=== PATIENT | male | born 1955 | race Caucasian/White ===

== ENCOUNTER 2022-10-16 21:26 | Emergency (ER) | payer OTHER, MEDICARE, BC ==
[~2022-10-16] VITALS: Ht 182.9 cm; Wt 111.8 kg
--- NOTE | 2022-10-16 23:19 | NUR ---
gave him an OJ to drink. His son is with him. Pt awake and alert.
[2022-10-17 01:24] VITALS: BP 147/78
== END 2022-10-17 01:25 | disposition home or self-care (01) ==
LOC: ER 21:27
DX: E11.649 Type 2 diabetes mellitus with hypoglycemia without coma (principal); E78.00 Pure hypercholesterolemia, unspecified; W19.XXXA Unspecified fall, initial encounter; Y93.89 Activity, other specified; Y92.89 Other specified places as the place of occurrence of the external cause; Y99.8 Other external cause status
CPT/HCPCS: 82948; 99284

== ENCOUNTER 2022-10-20 04:11 | Inpatient (IN) | payer OTHER, MEDICARE, BC ==
[~2022-10-20] VITALS: Ht 182.9 cm; Wt 108.0 kg
[2022-10-20 04:54] LABS: BASOPHILS % (AUTO) 0.5 % (0-1); EOSINOPHILS # (AUTO) 0.1 X10'3 (0-0.9); EOSINOPHILS % (AUTO) 2.3 % (0-6); HEMATOCRIT 37.9 % (42.0-52.0); HEMOGLOBIN 12.4 g/dl (14.0-17.9); LYMPHOCYTES # (AUTO) 0.8 X10'3 (1.1-4.8); LYMPHOCYTES % (AUTO) 12.4 % (21-51); MEAN CORPUSCULAR HEMOGLOBIN 30.1 PG (27.0-31.0); MEAN CORPUSCULAR HGB CONC 32.7 g/dL (33.0-36.5); MEAN CORPUSCULAR VOLUME 92.1 FL (78-98); MEAN PLATELET VOLUME 8.8 FL (7.4-10.4); MONOCYTES # (AUTO) 0.6 X10'3 (0-0.9); MONOCYTES % (AUTO) 9.5 % (2-12); NEUTROPHILS # (AUTO) 4.7 X10'3 (1.8-7.7); NEUTROPHILS % (AUTO) 75.3 % (42-75); PLATELET COUNT 139 X10'3 (140-440); RED BLOOD COUNT 4.12 X10'6 (4.70-6.10); RED CELL DISTRIBUTION WIDTH 13.9 % (11.5-14.5); WHITE BLOOD COUNT 6.3 X10'3 (4.5-11.0)
[2022-10-20 04:55] LABS: COLOR,URINE YELLOW (Yellow); GLUCOSE, URINE 100 mg/dl (Neg); KETONES,URINE NEGATIVE (Neg); LEUKOCYTE ESTERASE ,URINE NEGATIVE (Neg); NITRITES, URINE NEGATIVE (Neg); OCCULT BLOOD,URINE NEGATIVE (Neg); PH,URINE 5.5 (4.8-8.0); PROTEIN,URINE TRACE mg/dl (Neg); UROBILINOGEN,URINE 0.2 E.U/dL (0.2-1.0)
[2022-10-20 05:03] LABS: CLARITY,URINE SLIGHTLY CLOUDY (Clear); UA COLLECTION TYPE CLN CATCH MIDSTREAM
[2022-10-20 05:06] LABS: ALANINE AMINOTRANSFERASE 36 U/L (12-78); ALBUMIN 3.3 G/DL (3.4-5.0); ALKALINE PHOSPHATASE 89 IU/L (46-116); ANION GAP 11 (8-16); ASPARTATE AMINO TRANSFERASE 25 U/L (10-37); BILIRUBIN,TOTAL 0.2 MG/DL (0.1-1.0); BLOOD UREA NITROGEN 41 MG/DL (7-18); BUN/CREATININE RATIO 18.8 (10.0-20.0); CALCIUM 8.3 MG/DL (8.5-10.1); CHLORIDE 111 MMOL/L (99-107); CREATININE 2.18 MG/DL (0.60-1.10); GLUCOSE 128 MG/DL (70-104); POTASSIUM 4.9 MMOL/L (3.5-5.1); SODIUM 141 MMOL/L (135-145); TOTAL CARBON DIOXIDE 19.4 MMOL/L (24-32); TOTAL PROTEIN 6.7 G/DL (6.4-8.2); eGFR 30 ML/MIN
[2022-10-20 05:14] LABS: BACTERIA,URINE NONE SEEN /HPF (Neg); MUCUS STRANDS FEW /LPF (Neg); RBC,URINE 0-2 /HPF (0-2); SQUAMOUS EPITHELIAL CELL,UR FEW /LPF (FEW); WBC,URINE 0-4 /HPF (0-4)
[2022-10-20] MEDS ORDERED: HYDROcodone/acetaminophen 10/325mg tab PO PRN (05:30)
[2022-10-20] MEDS ORDERED: ondansetron 4mg rapidly disintigrating tab PO PRN (05:30)
[2022-10-20] MEDS ORDERED: ondansetron/PF 4mg/2ml inj IV PRN (05:30)
[2022-10-20] MEDS ORDERED: HYDROcodone/acetaminophen 5mg/325mg tablet PO PRN (05:30)
[2022-10-20] MEDS ORDERED: magnesium hydroxide 30ml (MOM) UD suspension PO PRN (05:30)
[2022-10-20] MEDS ORDERED: bisacodyl 10mg suppository rectal RC PRN (05:30)
[2022-10-20] MEDS ORDERED: mag hydrox/Alum hydrox/simeth 30ml oral suspension PO PRN (05:30)
[2022-10-20] MEDS ORDERED: acetaminophen 325mg tablet PO PRN ×2 (05:30)
[2022-10-20] MEDS ORDERED: diphenhydrAMINE 25mg capsule PO PRN (05:30)
[2022-10-20] MEDS ORDERED: diphenhydrAMINE 50 mg/ml inj IV PRN (05:30)
[2022-10-20] MEDS ORDERED: morphine 2 MG/ML inj. syringe IV PRN ×2 (05:30)
[2022-10-20] MEDS ORDERED: acetaminophen 650mg rectal suppository RC PRN (05:30)
[2022-10-20] MEDS ORDERED: dextrose 50%-water 50ml dispensing syringe IV PRN ×2 (05:35)
[2022-10-20] MEDS ORDERED: insulin Lispro (HumaLOG) vial - multi-dose SQ SCH (05:35)
[2022-10-20] MEDS ORDERED: glucagon, human recombinant 1mg kit SUBCUT PRN (05:35)
[2022-10-20] MEDS ORDERED: DEXTROSE 15 GM of carb/4 tabs (each vial/BOTTLE has 4 tablets) PO PRN ×2 (05:35)
[2022-10-20] MEDS ORDERED: MESSAGE TO PHARMACY PO ONE (05:35)
[2022-10-20] MEDS: dextrose 5%-1/2 normal saline 1,000 ML IV SCH ×2 (05:56→15:30)
[2022-10-20 07:31] LABS: CREATINE KINASE 157 U/L (39-308); LIPASE 64 U/L (73-393); MAGNESIUM 1.9 MG/DL (1.5-2.4); PHOSPHORUS 4.7 MG/DL (2.3-4.5)
[2022-10-20 07:45] LABS: HEMOGLOBIN A1C 8.4 % (4.5-6.2)
[2022-10-20] MEDS ORDERED: heparin, porcine 5000 units/ml vial SQ SCH (08:00)
[2022-10-20] MEDS: docusate sod 100mg capsule PO SCH ×2 (08:00→21:25)
[2022-10-20 09:04] LABS: APTT 28 SECONDS (22-32)
[2022-10-20] MEDS ORDERED: LISI5TAB22 PO (09:05)
[2022-10-20] MEDS ORDERED: RIVA10TA PO (09:05)
[2022-10-20] MEDS ORDERED: GABA-530 PO (09:41)
[2022-10-20] MEDS ORDERED: ALLO100T15 PO (09:41)
[2022-10-20] MEDS ORDERED: VITA-268 PO (09:41)
[2022-10-20] MEDS ORDERED: ATOR20TA PO (09:41)
[2022-10-20] MEDS ORDERED: CHOL125C6 (09:47)
[2022-10-20] MEDS ORDERED: CHOL200013 PO (12:50)
[2022-10-20] MEDS ORDERED: INSU100V56 SQ (12:53)
[2022-10-20] MEDS ORDERED: INSU100V46 SQ (12:53)
--- NOTE | 2022-10-20 17:24 | NUR ---
PATIENT IS EATING WELL. BLOOD GLUCOSE 240. HYPERGLYCEMIA PROTOCOL TO START WITH DINNER. PAGE SENT TO DR. MEADE TO CLARIFY THE IV FLUIDS OF D5.45 NS. PAGER ID: [phone] MESSAGE: ER BED #8 KARMEN. PATIENT'S BLOOD GLUCOSE IS 240 AND WE WILL BE STARTING HIM ON THE HYPERGLYCEMIA PROTOCOL WITH DINNER. DO YOU WANT TO CONTINUE THE D5.45 NS IV FLUIDS? THANKS, CORINNA EXT. [phone]
[2022-10-20 18:00] VITALS: BP 110/71
--- NOTE | 2022-10-20 19:00 | NUR ---
Patient in room ORTHO 4015. I have received report from Zabrina STILES and had the opportunity to ask questions and assume patient care.
--- NOTE | 2022-10-20 20:00 | NUR ---
Provider was paged to clarify the D5 1/2 ns that was ordered as the patients blood sugar was 240 in the er. Provider advised to d/c d5
[2022-10-20] MEDS ORDERED: atorvastatin 20mg tablet PO SCH (21:00)
[2022-10-20] MEDS ORDERED: temazepam 15mg capsule PO PRN (21:00)
[2022-10-20] MEDS ORDERED: rivaroxaban 10mg tablet PO SCH (21:00)
[2022-10-20 22:00] VITALS: BP 125/76
[2022-10-21 06:23] LABS: BASOPHILS % (AUTO) 0.8 % (0-1); EOSINOPHILS # (AUTO) 0.4 X10'3 (0-0.9); EOSINOPHILS % (AUTO) 7.1 % (0-6); HEMATOCRIT 35.7 % (42.0-52.0); HEMOGLOBIN 11.8 g/dl (14.0-17.9); LYMPHOCYTES # (AUTO) 1.4 X10'3 (1.1-4.8); LYMPHOCYTES % (AUTO) 26.5 % (21-51); MEAN CORPUSCULAR HEMOGLOBIN 29.9 PG (27.0-31.0); MEAN CORPUSCULAR HGB CONC 32.9 g/dL (33.0-36.5); MEAN CORPUSCULAR VOLUME 90.9 FL (78-98); MEAN PLATELET VOLUME 8.9 FL (7.4-10.4); MONOCYTES # (AUTO) 0.5 X10'3 (0-0.9); MONOCYTES % (AUTO) 8.8 % (2-12); NEUTROPHILS # (AUTO) 3.1 X10'3 (1.8-7.7); NEUTROPHILS % (AUTO) 56.8 % (42-75); PLATELET COUNT 157 X10'3 (140-440); RED BLOOD COUNT 3.93 X10'6 (4.70-6.10); RED CELL DISTRIBUTION WIDTH 14.1 % (11.5-14.5); WHITE BLOOD COUNT 5.5 X10'3 (4.5-11.0)
--- NOTE | 2022-10-21 06:30 | NUR ---
Patient in room ORTHO 4015. I have received report from MAXINE and had the opportunity to ask questions and assume patient care.
[2022-10-21 06:41] VITALS: BP 124/50
[2022-10-21 06:47] LABS: ALANINE AMINOTRANSFERASE 30 U/L (12-78); ALBUMIN/GLOBULIN RATIO 0.9 (1.1-1.5); ALKALINE PHOSPHATASE 80 IU/L (46-116); ANION GAP 7 (8-16); ASPARTATE AMINO TRANSFERASE 18 U/L (10-37); BILIRUBIN,TOTAL 0.4 MG/DL (0.1-1.0); BLOOD UREA NITROGEN 38 MG/DL (7-18); BUN/CREATININE RATIO 20.3 (10.0-20.0); CALCIUM 8.6 MG/DL (8.5-10.1); CHLORIDE 110 MMOL/L (99-107); CHOL/HDL RATIO 3.3 (0.00-4.99); CHOLESTEROL 128 MG/DL (0-200); CREATININE 1.87 MG/DL (0.60-1.10); GLUCOSE 152 MG/DL (70-104); HDL CHOLESTEROL 39 MG/DL (35-60); POTASSIUM 5.4 MMOL/L (3.5-5.1); SODIUM 139 MMOL/L (135-145); TOTAL CARBON DIOXIDE 22.3 MMOL/L (24-32); TOTAL PROTEIN 6.4 G/DL (6.4-8.2); TRIGLYCERIDES 197 MG/DL (20-135); eGFR 36 ML/MIN
--- NOTE | 2022-10-21 06:47 | NUR ---
Patient in room ORTHO 4015. I have received report from Trish STILES and had the opportunity to ask questions and assume patient care.
[2022-10-21 07:00] LABS: LDL CHOLESTEROL 57 MG/DL (50-100)
[2022-10-21] MEDS ORDERED: vitamin B comp w/Vit. C tab 1 TAB TABLET PO SCH (08:00)
[2022-10-21] MEDS ORDERED: lisinopril 5mg tablet PO SCH (08:00)
[2022-10-21] MEDS ORDERED: cholecalciferol (vitamin D3) 1,000 unit (25mcg) tablet PO SCH (08:00)
[2022-10-21] MEDS: docusate sod 100mg capsule PO SCH (08:40)
--- NOTE | 2022-10-21 09:39 | NUR ---
PATIENT HAS MET PROTOCOL FOR YOU DM2 TREATMENT DURING PREVIOUS SHIFT, BUT PATIENT HAS NOT RECEIVED INSULIN DURING THIS VISIT. PATIENT WAS IV MAINTENANCE FLUIDS WITH DEXTROSE IN IT THAT HAS SINCE BEEN DC'D. WILL CONTINUE MONITORING.
[2022-10-21 09:53] VITALS: BP 144/70
[2022-10-21] MEDS ORDERED: PREG50CA64 PO (10:17)
--- NOTE | 2022-10-21 13:16 | NUR ---
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 Pt seen at bedside provided with written and verbal DM education. Pt states he is familiar with the rule of 15s for tx of hypoglycemia and states he likes to use orange juice, peaches, or applesauce to increase blood sugar. Pt reports living with his son and SO who assist him when having episodes of hypoglycemia. Per pt his last A1c was 8.2% on October 17 at the [facility] down from 8.6%. Pt states he believes his hypoglycemia is r/t new rx for Gabapentin stating he has not had issues with hypoglycemia prior to this new rx. Pt reports obtaining a new glucometer last week and appears to check his blood sugars regularly. Pt inquired about potassium content of foods reporting only having one kidney with elevated K on admit. Pt states he got a list of potassium content of foods from his physician. All of patient's questions were answered at this time. RD contact information provided and pt encouraged to reach out if needed. Will remain available. Addendum: 10/21/22 at [address] Amended: Links added.
--- NOTE | 2022-10-21 17:59 | NUR ---
Patient discharged home, patient was educated on new medication at the time of discharge. Patient was picked up by private vehicle. Patient left with all belongings and IV was taken out at the time of discharge.
== END 2022-10-21 15:43 | disposition home or self-care (01) | DRG 683 ==
LOC: ER 04:12 → ED HOLD 05:34 → EDBEDREQTM 17:06 → EDBEDREQDT 17:06 → ORTHO 4S 18:56
PROVIDERS: ADMIT Family Medicine; ATTEND Family Medicine
DX: N17.0 Acute kidney failure with tubular necrosis (principal); E87.20 Acidosis, unspecified; E11.649 Type 2 diabetes mellitus with hypoglycemia without coma; E11.22 Type 2 diabetes mellitus with diabetic chronic kidney disease; I12.9 Hypertensive chronic kidney disease with stage 1 through stage 4 chronic kidney disease, or unspecified chronic kidney disease; E88.09 Other disorders of plasma-protein metabolism, not elsewhere classified; M54.9 Dorsalgia, unspecified; E87.5 Hyperkalemia; E11.42 Type 2 diabetes mellitus with diabetic polyneuropathy; N18.9 Chronic kidney disease, unspecified; D64.9 Anemia, unspecified; E78.00 Pure hypercholesterolemia, unspecified; G89.4 Chronic pain syndrome; Z79.01 Long term (current) use of anticoagulants; Z79.4 Long term (current) use of insulin; Z85.528 Personal history of other malignant neoplasm of kidney; Z86.718 Personal history of other venous thrombosis and embolism; Z90.5 Acquired absence of kidney; Z79.899 Other long term (current) drug therapy
CPT/HCPCS: 36415; 71045; 80053; 80061; 81001; 82550; 82948; 83036; 83605; 83690; 83735; 83880; 84100; 84443; 84484; 85025; 85610; 85730; 87040; 87081; 93005; 99285; G0378

== ENCOUNTER 2024-04-25 04:51 | Emergency (ER) | payer OTHER, MEDICARE, BC ==
[~2024-04-25] VITALS: Ht 182.9 cm; Wt 97.7 kg
[~2024-04-25 04:51] MED LIST: ATOR20TA PO; CHOL200013 PO; INSU100V46 SQ; INSU100V56 SQ; LISI5TAB22 PO; RIVA10TA PO; SEMA1PEN3 SUBCUT; VITA-268 PO
[2024-04-25 07:44] LABS: BASOPHILS % (AUTO) 0.6 % (0-1); EOSINOPHILS # (AUTO) 0.1 X10'3 (0-0.9); EOSINOPHILS % (AUTO) 3.3 % (0-6); HEMATOCRIT 36.5 % (42.0-52.0); HEMOGLOBIN 12.5 g/dl (14.0-17.9); LYMPHOCYTES # (AUTO) 0.8 X10'3 (1.1-4.8); LYMPHOCYTES % (AUTO) 19.6 % (21-51); MEAN CORPUSCULAR HEMOGLOBIN 30.7 PG (27.0-31.0); MEAN CORPUSCULAR HGB CONC 34.2 g/dL (33.0-36.5); MEAN CORPUSCULAR VOLUME 89.6 FL (78-98); MONOCYTES # (AUTO) 0.4 X10'3 (0-0.9); MONOCYTES % (AUTO) 10.2 % (2-12); NEUTROPHILS # (AUTO) 2.8 X10'3 (1.8-7.7); NEUTROPHILS % (AUTO) 66.3 % (42-75); PLATELET COUNT 161 X10'3 (140-440); RED BLOOD COUNT 4.08 X10'6 (4.70-6.10); RED CELL DISTRIBUTION WIDTH 14.2 % (11.5-14.5); WHITE BLOOD COUNT 4.2 X10'3 (4.5-11.0)
[2024-04-25 08:03] LABS: ALBUMIN 2.8 G/DL (3.4-5.0); ANION GAP 9 (8-16); BLOOD UREA NITROGEN 30 MG/DL (7-18); BUN/CREATININE RATIO 15.5 (10.0-20.0); CALCIUM 7.5 MG/DL (8.5-10.1); CHLORIDE 112 MMOL/L (99-107); CREATININE 1.93 MG/DL (0.60-1.10); GLUCOSE 125 MG/DL (70-104); MAGNESIUM 1.8 MG/DL (1.5-2.4); SODIUM 144 MMOL/L (135-145); TOTAL CARBON DIOXIDE 23.1 MMOL/L (24-32); eCRCL 39 ML/MIN; eGFR 34 ML/MIN
[2024-04-25 08:18] LABS: BILIRUBIN,URINE NEGATIVE (Neg); CLARITY,URINE CLEAR (Clear); COLOR,URINE YELLOW (Yellow); GLUCOSE, URINE 250 mg/dl (Neg); KETONES,URINE NEGATIVE (Neg); LEUKOCYTE ESTERASE ,URINE NEGATIVE (Neg); NITRITES, URINE NEGATIVE (Neg); OCCULT BLOOD,URINE NEGATIVE (Neg); PROTEIN,URINE 100 mg/dl (Neg); UROBILINOGEN,URINE 0.2 E.U/dL (0.2-1.0)
[2024-04-25 08:31] LABS: UA COLLECTION TYPE CLN CATCH MIDSTREAM
[2024-04-25 08:32] LABS: BACTERIA,URINE NONE SEEN /HPF (Neg); MUCUS STRANDS FEW /LPF (Neg); RBC,URINE NONE SEEN /HPF (0-2); SQUAMOUS EPITHELIAL CELL,UR FEW /LPF (FEW); WBC,URINE NONE SEEN /HPF (0-4)
[2024-04-25 09:53] VITALS: BP 160/88; PULSE 76; RESP 18; TEMP 97.6; O2SAT 96
== END 2024-04-25 09:57 | disposition home or self-care (01) ==
LOC: ER 04:52
DX: E11.649 Type 2 diabetes mellitus with hypoglycemia without coma (principal); E78.00 Pure hypercholesterolemia, unspecified; G89.29 Other chronic pain; R56.9 Unspecified convulsions; Z91.018 Allergy to other foods; Z79.899 Other long term (current) drug therapy; Z79.4 Long term (current) use of insulin; Z86.718 Personal history of other venous thrombosis and embolism; Z88.8 Allergy status to other drugs, medicaments and biological substances
CPT/HCPCS: 36415; 70450; 71045; 80048; 81001; 82948; 83735; 84145; 84484; 85025; 93005; 99285

== ENCOUNTER 2024-11-19 17:54 | Inpatient (IN) | payer OTHER, MEDICARE, BC ==
[~2024-11-19] VITALS: Ht 182.9 cm; Wt 98.2 kg
--- NOTE | 2024-11-19 18:12 | ELECTROCARDIOGRAPH REPORT ---
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
--- NOTE | 2024-11-19 18:41 | RADIOLOGY REPORT ---
CHEST RADIOGRAPH Indication: CP Technique: Single frontal view of the chest was obtained Comparison: None FINDINGS: The cardiac silhouette is enlarged. The lungs demonstrate no pulmonary airspace consolidation. The pu lmonary vasculature is unremarkable. There is no pleural effusion.. There is no pneumothorax. IMPRESSION: No pulmonary airspace consolidation. Cardiomegaly.
[2024-11-19 19:25] LABS: MEAN PLATELET VOLUME 8.2 FL (7.4-10.4); RED CELL DISTRIBUTION WIDTH 13.6 % (11.5-14.5)
[2024-11-19 19:47] LABS: CREATININE 1.91 MG/DL (0.60-1.10); PRO BRAIN NATRIURETIC PEPTIDE 171 PG/ML (0-125); TOTAL CARBON DIOXIDE 21.4 MMOL/L (24-32); eCRCL 39 ML/MIN; eGFR 35 ML/MIN
--- NOTE | 2024-11-19 20:06 | Physician Documentation ---
History of Present Illness ~ Chief Complaint: Shortness of Breath Stated Complaint: SOB Time Seen by MD: 19:53 Primary Medical Doctor: KENNEDI CIFUENTES Mode of Arrival: Ambulatory HPI Patient presents to the emergency room with chief complaint of shortness of breath. He states he started feeling fatigued with the chills this afternoon and took a nap and when he woke up an hour later he went to walk to go make some lasagna and he felt short of breath to the point where he needed to sit down and ambulance was called. Patient does have history of DVT and reports compliance with the Xarelto last dose last night. He reports a family history of blood clots. He does endorse some chest pain when the ambulance was getting him to be transferred to the [facility] but no current chest pain. No prior instances. He reports no increased swelling or pain in either lower extremity. Patient only has one kidney. Medication Reconciliation Allergies: Coded Allergies: blueberry (Unverified Allergy, Unknown, 11/19/24) gabapentin (Verified Allergy, Unknown, 11/19/24) Scheduled Atorvastatin Calcium* (Lipitor*), 1 TABLET PO HS, (Reported) Cholecalciferol (Vitamin D3) (D3-2000), 100 MCG PO DAILY, (Reported) Insulin Aspart (Insulin Aspart), 10 UNIT SQ TID, (Reported) Insulin Glargine,Hum.rec.anlog (Insulin Glargine), 34 UNIT SQ HS, (Reported) Lisinopril (Lisinopril), 1 TAB PO DAILY, (Reported) Rivaroxaban (Xarelto), 1 TAB PO QPM, (Reported) Semaglutide (Ozempic), 0.5 MG SUBCUT Q7D, (Reported) Vitamin B Complex (B Complex), 1 TAB PO DAILY, (Reported) Past Medical History Past Medical History: High Cholesterol, *RENAL/*, Diabetes, Chronic Back Pain, Deep Vein Thrombosis, *CANCER* Past Surgical History: cancer surgery Alcohol Use: None Drug Use: none Review of Systems ROS All review of systems negative except as per HPI Physical Exam Vital Signs: Temperature: 97.8, Source: Oral, Heart Rate: 111, Respiratory Rate: 16, BP: 121/71, Pulse Oximetry: 92, Weight: 98.180 Oxygen Flow Rate: 0 Physical Exam General: Patient is awake, alert, oriented x4 in no acute distress Head: Normocephalic and atraumatic. Eyes: Conjunctival normal. EOMI. PERRL. ENT: Mucous membranes moist. Neck: Supple, trachea is midline. Chest: Clear to auscultation bilaterally without rales, rhonchi, or wheezes. There is no accessory muscle use or retractions. Cardiac: Tachycardic and regular without murmurs, gallops, or rubs. Abd: Soft, nondistended, nontender, with normoactive bowel sounds. No guarding, rebound, or rigidity. Extremities: Normal strength. Normal range of motion. No deformities or edema. No calf tenderness to palpation Progress Results/Orders Results/Orders Orders - LUIS BRAMBILA MD Chest,Single View (11/19/24 18:11) Monitor (11/19/24 18:11) Saline Lock (11/19/24 18:11) Oxygen (11/19/24 18:11) Electrocardiogram (11/19/24 19:49) Heparin 25,000 Unit/250ml Bag (Heparin 2 (11/19/24 20:20) Heparin 10,000 Unit/Ml 1ml (Heparin 10,0 (11/19/24 20:20) Cbc/Diff (11/20/24 03:00) Cbc/Diff (11/21/24 03:00) Cbc/Diff (11/22/24 03:00) Cbc/Diff (11/23/24 03:00) Cbc/Diff (11/24/24 03:00) Page Hospitalist (11/19/24 21:52) Fill Out Med Reconciliation (11/19/24 21:52) Completed Orders - LUIS BRAMBILA MD Chest,Single View (11/19/24 18:11) Cbc/Diff (11/19/24 18:11) BMP (11/19/24 18:11) PBNP (11/19/24 18:11) Electrocardiogram (11/19/24 18:11) Hs Troponin I W Calculations (11/19/24 18:11) Hs Troponin I W Calculations (11/19/24 20:11) Hs Troponin I W Calculations (11/19/24 21:11) D-Dimer (11/19/24 20:17) Pt Inr (11/19/24 20:17) PTT (11/19/24 20:17) Cbc/Diff (11/19/24 20:17) Heparin 10,000 Unit/Ml 1ml (Heparin 10,0 (11/19/24 20:20) Message To Nursing (11/19/24 20:40) Medications Received in ER Medications (Trade) Dose Ordered Sig/Michele Route PRN Reason Start Time Stop Time Status Last Admin Dose Admin (heparin 10,000 unit/ml 1ml inj) 7,900 units ONCE ONCE IV 11/19/24 20:20 11/19/24 20:33 DC 11/19/24 20:50 7,900 UNITS Heparin Sodium/ Dextrose 250 ml @ 18 mls/hr [id number] PRN IV TO MAINTAIN PTT WITHIN RANGE 11/19/24 20:20 11/19/24 20:46 18 MLS/HR Vital Signs 11/19/24 11/19/24 11/19/24 18:05 18:28 18:33 Temp 98.4 97.8 Pulse 112 111 Resp 22 16 16 B/P (MAP) 121/71 121/71 (88) Pulse Ox 92 92 O2 Flow Rate 2.0 0 Laboratory Tests Test 11/19/24 18:54 11/19/24 19:54 11/19/24 20:38 11/19/24 21:06 White Blood Count 5.3 6.2 Red Blood Count 4.66 L 4.82 Hemoglobin 14.1 14.6 Hematocrit 40.9 L 42.2 Mean Corpuscular Volume 87.8 87.5 Mean Corpuscular Hemoglobin 30.2 30.2 Mean Corpuscular Hemoglobin Concent 34.4 34.5 Red Cell Distribution Width 13.6 13.7 Platelet Count 146 158 Mean Platelet Volume 8.2 8.5 Neutrophils (%) (Auto) 67.3 73.6 Lymphocytes (%) (Auto) 20.1 L 16.3 L Monocytes (%) (Auto) 8.0 6.9 Eosinophils (%) (Auto) 3.9 2.3 Basophils (%) (Auto) 0.7 0.9 Neutrophils # (Auto) 3.5 4.6 Lymphocytes # (Auto) 1.1 1.0 L Monocytes # (Auto) 0.4 0.4 Eosinophils # (Auto) 0.2 0.1 Basophils # (Auto) 0.0 0.1 CBC Comment Sodium Level 133 L Potassium Level 5.9 H Chloride Level 103 Carbon Dioxide Level 21.4 L Anion Gap 9 Blood Urea Nitrogen 33 H Creatinine 1.91 H Estimated GFR/1.73 m2 35 BUN/Creatinine Ratio 17.3 Glucose Level 314 H Calcium Level 8.4 L Troponin I High Sensitivity 2544 *H 2985 *H 3332 *H Pro-B-Type Natriuretic Peptide 171 H Albumin 3.3 L Chemistry Comments Troponin I High Sens Percent Delta 17 11 Troponin I Hi Sens Absolute Change 441 347 Prothrombin Time 10.5 INR International Normalized Ratio 1.0 Activated Partial Thromboplast Time 26 D-Dimer 11.36 H D-Dimer Comment Coagulation Comments EKG/XRAY/CT/US/VASC/MRI EKG : Additional Comment EKG interpreted by myself shows time of 1806, rate 114, sinus tachycardia, normal axis, no ST changes Chest X-Ray : Additional Comments Exam: CHEST,SINGLE VIEW CHEST RADIOGRAPH Indication: CP Technique: Single frontal view of the chest was obtained Comparison: None FINDINGS: The cardiac silhouette is enlarged. The lungs demonstrate no pulmonary airspace consolidation. The pulmonary vasculature is unremarkable. There is no pleural effusion.. There is no pneumothorax. IMPRESSION: No pulmonary airspace consolidation. Cardiomegaly. Medical Decision Making Findings Patient presented to the emergency room with chief complaint of shortness of breath with associated chest pain. Differentials include but are not limited to ACS, CHF, pulmonary embolism, pneumothorax, anxiety therefore emergent labs and imaging indicated. Labs concerning for elevated troponins. History of DVT and that has also concern for possible pulmonary embolisms. As patient's GFR is low and he only has one kidney we opted to perform a D-dimer hoping it would be negative however it is significantly elevated. We would not have the ability to do a nuclear medicine to do a V/Q scan at this time in the emergency room therefore empirical treatment for pulmonary embolism has been initiated. EKGs reassuring for no ST-elevation and the troponins could represent strain from pu lmonary embolism versus acute coronary syndrome. We will admit for further investigation and possible intervention. Consideration of the aortic pathology also considered however he has no back pain he had not feel that his right-sided chest pain represents aortic pathology Departure Admitted to Inpatient Unit: yes, to hospitalist Impression: Primary Impression: NSTEMI (non-ST elevated myocardial infarction) Additional Impression: Suspected pulmonary embolism Condition: Guarded Referrals: NO PRIMARY CARE PROVIDER (PCP) Critical Care Note Total Time (mins): 76 Critical Care Note The very real possibility of a deterioration of this patient's condition required the highest level of my preparedness for sudden, emergent intervention. I provided critical care services, which included medication orders, frequent reevaluations of the patient's condition and response to treatment, ordering and reviewing test results, and discussing the case with various consultants. Excludes time spent performing separately billable procedures. The critical care time associated with the care of the patient was 76 minutes not counting procedures Signature Scribe Signature: No scribe Attestation: The note accurately reflects work and decisions made by me.Luis Brambila MD 11/19/24 22:04 LUIS BRAMBILA MD Nov 19, 2024 20:06
[2024-11-19] MEDS ORDERED: heparin 10,000 units/1 ML INJ IV PRN (20:20)
[2024-11-19] MEDS: heparin 25,000 UNIT/250ml bag 250 ML IV PRN (20:46)
[2024-11-19] MEDS: heparin 10,000 units/1 ML INJ IV ONE (20:50)
[2024-11-19] MEDS: MESSAGE TO NURSING IV ONE (20:50)
[2024-11-19 20:51] LABS: MEAN PLATELET VOLUME 8.5 FL (7.4-10.4); RED CELL DISTRIBUTION WIDTH 13.7 % (11.5-14.5)
[2024-11-19 21:09] LABS: APTT 26 SECONDS (22-32); INR 1.0 INR
[2024-11-19] MEDS ORDERED: DEXTROSE 15 GM of carb/4 tabs (each vial/BOTTLE has 4 tablets) PO PRN ×2 (22:50)
[2024-11-19] MEDS ORDERED: dextrose 50%-water 50ml dispensing syringe IV PRN ×2 (22:50)
[2024-11-19] MEDS ORDERED: glucagon, human recombinant 1mg kit SUBCUT PRN (22:50)
[2024-11-19] MEDS: INSULIN LISPRO 100 UNIT/ML INSULN.PEN MULTI-DOSE SQ SCH (23:13)
[2024-11-19] MEDS: insulin glargine (Lantus) pen - multi-dose SQ SCH (23:16)
[2024-11-19] MEDS: insulin glargine (Lantus) pen - multi-dose SQ ONE (23:17)
[2024-11-19] MEDS: INSULIN LISPRO 100 UNIT/ML INSULN.PEN MULTI-DOSE SQ ONE (23:17)
[2024-11-20] MEDS ORDERED: magnesium sulf-water 4G/100mL 100 ML IV PRN (04:00)
[2024-11-20] MEDS ORDERED: ondansetron/PF 4mg/2ml inj IV PRN (04:00)
[2024-11-20] MEDS ORDERED: magnesium hydroxide 30ml (MOM) UD suspension PO PRN (04:00)
[2024-11-20] MEDS ORDERED: mag hydrox/Alum hydrox/simeth 30ml oral suspension PO PRN (04:00)
[2024-11-20] MEDS ORDERED: magnesium sulf-water 2g/50mL 50 ML IV PRN (04:00)
[2024-11-20] MEDS ORDERED: potassium Cl 20 mEq SR tablet PO PRN ×2 (04:00)
[2024-11-20] MEDS ORDERED: HYDROcodone/acetaminophen 5mg/325mg tablet PO PRN (04:00)
[2024-11-20] MEDS ORDERED: potassium Cl 40MEQ/1/2NS 520ml 520 ML IV PRN (04:00)
[2024-11-20] MEDS ORDERED: magnesium Cl slow-release 64mg tablet PO PRN (04:00)
--- NOTE | 2024-11-20 04:31 | HISTORY AND PHYSICAL-Residence ---
History & Physical Providers to CC Resident Creating Document: AMANDEEP TIWARI, RES CC: BHARATHI CARROLL MD ~ History of Present Illness Primary Medical Doctor: KENNEDI CIFUENTES Reason for Admit\Complaint: Shortness of breaths History of Present Illness Attestation I agree with the residents assessment and plan as below: Plan: VQ scan heparin infusion repeat bmp CCT 60 min using HIPPA compliant A/V technology A 69-year-old male with a past medical history of diabetes, DVT on Xarelto, RCC status post nephrectomy presented to the ED after he started to feel shaky and short of breaths this afternoon after he went back home after checking the mailbox in his community. Patient states that he did not lose consciousness but had shaking in his aware of what was happening. Patient did not have involuntary bowel or bladder movement. Since he was feeling weak he slept for an hour and woke up continued to feel weak and therefore call the 911 while coming downstairs patient is started have chest tightness in the center of the chest with no radiation; difficulty breathing. Patient denies fever chills, palpitations, dizzy, headache. Patient does not have any difficulty in speech or weakness in his lower legs Allergies: Coded Allergies: blueberry (Unverified Allergy, Unknown, 11/19/24) gabapentin (Verified Allergy, Unknown, 11/19/24) Home Medications Home Medications Active Reported Ozempic (Semaglutide) 1 Mg/0.75 Ml (4 Mg/3 Ml) Pen.injctr 0.5 Mg SUBCUT Q7D 30 Days Insulin Glargine (Insulin Glargine,Hum.rec.anlog) 100 Unit/Ml Vial 34 Unit SQ HS Insulin Aspart 100 Unit/Ml Vial 10 Unit SQ TID Pt gets 35 units-35 units-30units each day D3-2000 (Cholecalciferol (Vitamin D3)) 50 Mcg Capsule 100 Mcg PO DAILY B Complex (Vitamin B Complex) 1 Each Tablet 1 Tab PO DAILY Xarelto (Rivaroxaban) 10 Mg Tablet 1 Tab PO QPM take with meals Lisinopril 5 Mg Tablet 0.5 Tab PO DAILY Past Medical History Past Medical History Neuropathy Diabetes mellitus DVT RCC Concussion and seizures Past Surgical History Surgical History Comment Orthopedics induced Nephrectomy Past Social History Social History Comment Patient does not smoke, consume marijuana or illicit drugs or alcohol Lives at home with his 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 Does not use walking aids to move Goes to [facility]es [facility] Alcohol Use: None Drug Use: None ROS ROS All other systems reviewed in full and negative except for the pertinent positives mentioned in the HPI Exam Vitals: Vital Signs Date Time Temp Pulse Resp B/P (MAP) Pulse Ox O2 Delivery O2 Flow Rate FiO2 11/20/24 04:22 88 18 106/81 (89) 96 3.0 11/19/24 18:28 97.8 General: General: Alert, awake, oriented, not in acute distress HEENT: PERRLA, no icterus, pallor, lymphadenopathy, carotid bruit Respiratory system: Bilateral vesicular breath sounds heard, no adventitious breath sounds CVS: S1-S2 heard, no murmurs/rubs/gallop GI: Soft, nontender, no organomegaly, no guarding/rigidity, bowel sounds present Neuro: No motor sensory deficits, coordination reflux entered, patient AAO x3, deviation of the mouth to the right and loss of nasolabial fold on the right Extremities: No edema cyanosis clubbing/deformities Skin: Warm and dry Diagnostic Data Last Recorded Lab Results: 11/19/24203711/19/244 Diagnostic Data: Laboratory Tests Test 11/19/24 20:38 11/20/24 02:48 Prothrombin Time 10.5 SECONDS (9.0-12.0) INR International Normalized Ratio 1.0 INR Activated Partial Thromboplast Time 26 SECONDS (22-32) D-Dimer 11.36 MG/L FEU (0-0.50) H D-Dimer Comment APTT (Heparin Protocol) > 139 SECONDS (45-75) *H Coagulation Comments Advance Care Planning Advanced Care plannin - 30 Minutes (I spent 20 minutes discussing various resuscitative measures and the patient decided to be full code) Additional Plan Assessment: A 69-year-old male with a past medical history of DVT, RCC status post nephrectomy, HTN presented to the ED in view of generalized weakness, fatigue, shortness of breaths. Patient also had elevated D-dimer in the ED. patient is admitted for the evaluation management of pulmonary embolus Plan: Pulmonary embolism History of DVT Elevated D-dimer Wells score: 9 Follow up with V/Q scan and echo to look for right heart strain EKG: Sinus tachycardia Patient is started on IV heparin drip D-dimer: 11.36 Continue to monitor vitals Follow up on protein C, S, homocystine, factor five laden Evaluation for CVA/TIA Follow up with CT head Heparin might have to be held in view of hemorrhagic stroke Elevated troponins Most likely secondary to PE Follow up with repeat trop Prerenal JEREMÍAS probably secondary to renal tubular stasis Elevated BUN and creatinine Continue to monitor BMP Diabetes mellitus type 2, uncontrolled Hyperglycemia A1c in Sep, 2024: 9.1 Lantus 20 units, lispro 10 units ACHS, high-dose sliding scale insulin Hyperkalemia Most likely secondary to hyperglycemia I insulin given Monitor potassium levels Code status: Full code Diet: 75 g carb controlled Anticoagulation: Heparin drip Disposition: Admit to PCU, follow up with echo and V/Q scan Amandeep Tiwari MD Internal Medicine, PGY 2 Date of Service: Nov 19, 2024 Billing Provider: BHARATHI CARROLL MD, SIVA, RES Nov 20, 2024 04:31 BHARATHI CARROLL MD Nov 20, 2024 05:05
[2024-11-20] MEDS: normal saline 1000ml 1,000 ML IV SCH (04:57)
[2024-11-20] MEDS: MESSAGE TO NURSING IV ONE ×4 (04:58→23:45)
--- NOTE | 2024-11-20 05:25 | ELECTROCARDIOGRAPH REPORT ---
[facility] Test Date: 2024-11-19 Test Time: 19:55:04 Pat Name: HUNTER PERAZA Department: EMERGENCY ROOM Room: ED 6 Gender: M Hypo Splasher: RADU : 1955 Requested By: DAVID BRAMBILA Order Number: [id number] Reading MD: Measurements Intervals [place] Rate: 84 P: -76 MA: 157 QRS: 56 QRSD: 115 T: 56 QT: 356 QTc: 421 Interpretive Statements Ectopic atrial rhythm Nonspecific intraventricular conduction delay Low voltage, precordial leads Please click the below link to view image of tracing.
[2024-11-20 05:50] LABS: MEAN PLATELET VOLUME 8.5 FL (7.4-10.4); RED CELL DISTRIBUTION WIDTH 13.6 % (11.5-14.5)
[2024-11-20] MEDS: heparin 25,000 UNIT/250ml bag 250 ML IV PRN (06:28)
[2024-11-20 06:46] LABS: LEUKOCYTE ESTERASE ,URINE NEGATIVE (Neg); NITRITES, URINE NEGATIVE (Neg); OCCULT BLOOD,URINE TRACE-INTACT (Neg)
[2024-11-20] MEDS: INSULIN LISPRO 100 UNIT/ML INSULN.PEN MULTI-DOSE SQ SCH (07:00)
[2024-11-20 07:02] LABS: UA COLLECTION TYPE URINAL
[2024-11-20 07:04] LABS: MUCUS STRANDS NONE SEEN /LPF (Neg); SQUAMOUS EPITHELIAL CELL,UR FEW /LPF (FEW)
[2024-11-20] MEDS: K and/or MAG REPLACEMENT MC SCH (08:00)
[2024-11-20] MEDS: docusate sod 100mg capsule PO SCH (08:00)
[2024-11-20 09:44] VITALS: BP 122/71; PULSE 81; RESP 16; TEMP 98.4; O2SAT 95
--- NOTE | 2024-11-20 09:55 | RADIOLOGY REPORT ---
EXAM: CT CT HEAD INDICATION: cva TECHNIQUE: CT of the head without intravenous contrast. Radiation Dose : 1. Head: CT Dose: CTDI volume is 61 mGy. Dose-length product is 1061 mGy*cm The dose indicators for CT are the volume Computed Tomography (CT) Dose Index (CTDIvol) and the Dose Length Product (DLP), and are measured in units of mGy and mGy-cm, respectively. These indicators are not patient dose, but values generated from the CT scanner acquisition factors. The report includes radiation exposure data for exposures received during this examination. COMPARISON: CT CT HEAD on DOS: 04/25/24, MR MRI HEAD on DOS: 10/11/23, CT CT STROKE ALERT on DOS: 10/09 FINDINGS: There is no evidence of acute intracranial hemorrhage, extra-axial collection, mass effect, midline s hift, herniation or hydrocephalus. The ventricles, sulci and cisterns are age appropriate. The grewal-white differentiation is intact. Patchy periventricular and subcortical white matter hypoattenuation is nonspecific but may be related to small vessel ischemic disease. The visualized paranasal sinuses and mastoid air cells are clear. The surrounding soft tissues and osseous structures are unremarkable. IMPRESSION: 1. No acute intracranial abnormality. Radiation optimization: All CT scans at this facility use at least one of these dose optimization ha hniques: automated exposure control mA and/or kV adjustment per patient size (includes targeted exam s where dose is matched to clinical indication) or iterative reconstruction.
[2024-11-20 11:00] VITALS: BP 111/74; PULSE 97; RESP 20; TEMP 97.3; O2SAT 92
--- NOTE | 2024-11-20 11:05 | RADIOLOGY REPORT ---
CLINICAL INFORMATION: Shortness of breath, elevated D-dimer. History of DVT. TECHNIQUE: 42.4 mCi of aerosolized Tc99m DTPA was used for the ventilation portion of the exam. Post erior ventilation imaging was obtained. 5 mCi of technetium 99m MAA was used for the perfusion portio n of the exam. Imaging was obtained in multiple planes of projection. COMPARISON: Chest radiograph dated 11/19/2024. FINDINGS: Perfusion imaging shows no definite mismatched defects when compared to the ventilation images there is diminished perfusion and ventilation adjacent to the heart, although in some planes the perfusion defect is slightly larger than the ventilation defect. IMPRESSION: Low probability of pulmonary embolism (<20%).
[2024-11-20] MEDS ORDERED: heparin 10,000 units/1 ML INJ IV PRN (13:00)
[2024-11-20] MEDS ORDERED: heparin 25,000 UNIT/250ml bag 250 ML IV PRN ×2 (13:00→14:45)
[2024-11-20] MEDS: normal saline 1000ml 1,000 ML IV ONE (13:56)
[2024-11-20] MEDS: HEPARIN DRIP-CARDIAC**PHARMACIST-TO-DOSE IV ONE (14:42)
[2024-11-20 14:58] LABS: MEAN PLATELET VOLUME 8.9 FL (7.4-10.4); RED CELL DISTRIBUTION WIDTH 14.1 % (11.5-14.5)
[2024-11-20 15:00] VITALS: BP 122/74; PULSE 95; RESP 20; TEMP 97.6; O2SAT 92
[2024-11-20 15:04] LABS: CREATININE 1.94 MG/DL (0.60-1.10); TOTAL CARBON DIOXIDE 19.5 MMOL/L (24-32); eCRCL 38 ML/MIN; eGFR 34 ML/MIN
[2024-11-20 15:23] LABS: APTT 54 SECONDS (22-32); INR 1.1 INR
[2024-11-20 18:00] VITALS: BP 105/70; PULSE 74; RESP 15; TEMP 97.7; O2SAT 97
[2024-11-20 18:32] VITALS: RESP 16; O2SAT 98
--- NOTE | 2024-11-20 19:18 | CONSULTATION REPORT ---
Cardiac Consultation Report Providers to CC ~ Subjective Subjective Cardiology consultation: Abnormal cardiac enzymes shortness of breaths vague chest discomfort history. Emergency room history and evaluation is deferred then hospitalist history and evaluation. Patient is a vague historian. Not very helpful. He states he has never seen a circus roustabout. His general care is at [facility]. There is past medical history of one left nephrectomy for cancer. Insulin-dependent diabetes mellitus recurrent calf deep vein thrombosis no pulmonary embolization in the past by patient history with chronic Xarelto use. 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 Does not drink alcohol does not use nicotine. He had a ventilation perfusion lung scanning which was reported as low probability of pulmonary embolization. Troponin was 0.9. Echocardiography has been performed and reviewed. He has a right ventricular enlargement. Concentric left ventricular hypertrophy with normal wall motion. Tells me he feels out of breath lying in bed. He appears very comfortable. He was here in 09/2023 for either syncope or mechanical fall it was unclear but he had neurologic consultation without any findings. Objective Vitals Vital Signs Date Time Temp Pulse Resp B/P (MAP) Pulse Ox O2 Delivery O2 Flow Rate FiO2 11/20/24 18:32 16 98 Nasal Cannula 2.0 11/20/24 15:00 97.6 95 122/74 (90) Lab Results: 11/20/24 1354 11/20/24 1354 Objective Carotid no bruit chest clear to auscultation percussion heart no murmur S3 gallop no rub abdomen active bowel sounds no bruits pulses plus two upper and lower extremities. Oriented vague nonlinear historian. Coagulation Studies Laboratory Tests Test 11/19/24 20:38 11/20/24 10:57 11/20/24 13:54 D-Dimer 11.36 MG/L FEU (0-0.50) H D-Dimer Comment Prothrombin Time 10.9 SECONDS (9.0-12.0) INR International Normalized Ratio 1.1 INR Activated Partial Thromboplast Time 54 SECONDS (22-32) H APTT (Heparin Protocol) 40 SECONDS (45-75) L Coagulation Comments Problem\Assessment\Plan Additional Plan Impression: Episode of chills fatigue then shortness of breath with vague chest pressure was brought by ambulance to the hospital nonspecific ST-T changes V/Q scan excluded large pulmonary embolization however echocardiography shows right ventricular enlargement hypokinesis left ventricle concentric hypertrophy with normal contractility. I do not actually have an explanation for for his troponin rise. I discussed diagnostic coronary angiography with him and he declines as he does not want to have renal damage he is quite concerned about that. Recommendation: Lexiscan to evaluate for ischemia. If Lexiscan is abnormal then he may be willing to take the risk of diagnostic coronary angiography. Continue on heparin continue to hold Xarelto. If Lexiscan is positive then call circus roustabout who will be available for unassigned patient. BLAS DOAN MD Nov 20, 2024 19:18
[2024-11-20 20:00] VITALS: RESP 15; O2SAT 97
--- NOTE | 2024-11-20 20:14 | PROGRESS NOTE- Residence ---
Progress Note - Resident Providers to CC Resident Creating Document: ARNOLD CASTORENA RES ~ Antibiotic Timeout Antibiotic Ordered?: No Subjective Patient seen and examined bedside, but currently denied chest pain. Transitioned from PE protocol to ACS management. Objective Vital Signs Date Time Temp Pulse Resp B/P (MAP) Pulse Ox O2 Delivery O2 Flow Rate FiO2 11/20/24 18:32 16 98 Nasal Cannula 2.0 11/20/24 15:00 97.6 95 122/74 (90) Result Diagram: 11/20/24 1354 11/20/24 1354 Awake , alert, and oriented x4, resting comfortably in the bed, in no acute distress HEENT: Atraumatic, normocephalic, EOMI, anicteric sclera ; pink conjunctiva Neck: Trachea midline. Supple, full range of motion, no JVD Cardiac: Regular rhythm, regular rate with no murmurs all over the precordium. Respiratory: Equal breath sounds bilaterally, no tachypnea, no wheezing ,rub or rales, Chest wall is symmetric and without deformity. Gastrointestinal: Abdomen symmetric, non-distended, soft, non-tender, normal bowel sounds x4 quadrant, normoactive, no hepatosplenomegaly Musculoskeletal: Left foot ulcer, dressing in place Neurological: Speech is clear, alert, and oriented x 4. No motor or sensory deficit, deep tendon reflexes normal, cerebellar intact. Cranial nerves II-XII intact. Skin: Warm and dry Coagulation Studies Laboratory Tests Test 11/19/24 20:38 11/20/24 10:57 11/20/24 13:54 D-Dimer 11.36 MG/L FEU (0-0.50) H D-Dimer Comment Prothrombin Time 10.9 SECONDS (9.0-12.0) INR International Normalized Ratio 1.1 INR Activated Partial Thromboplast Time 54 SECONDS (22-32) H APTT (Heparin Protocol) 40 SECONDS (45-75) L Coagulation Comments Advance Care Planning Advanced Care plannin - 30 Minutes Assessment Assessment 69-year-old male, presented with chest tightness, troponins were elevated suggestive of NSTEMI, continue heparin protocol. Lexiscan ordered for tomorrow Plan Plan 1. NSTEMI Intermediate Risk (Type 1) FABIOLA Score: 3 (Age >65, CAD risk factors, elevated Trop) - Intermediate risk KRISTAL Score: 122 Intermediate mortality risk (36%) Hypertension Patient presented with chest tightness, SOB, and weakness without syncope or dizziness. Troponin elevated, EKG without ST elevation, symptoms consistent with ACS. PE ruled out with negative V/Q scan. Transitioned from PE protocol to ACS management. Cardiology consulted (Dr. Vallejo), recommended Lexiscan Echocardiography shows right ventricular enlargement hypokinesis left ventricle concentric hypertrophy with normal contractility. Dr. Vallejo discussed the option of coronary angiography with the patient and the patient has declined to avoid renal damage. Cardiology recommended Lexiscan to evaluate for ischemia. If Lexiscan is abnormal then the patient may be willing to take the risk of diagnostic coronary angiography. Ordered Lexiscan per Cardiology Initiated atorvastatin 80 mg, metoprolol tartrate 25 mg once daily Continue telemetry, monitor for ischemia Morphine PRN for chest pain Holding off lisinopril for now in view of his JEREMÍAS, we will initiate amlodipine if blood pressures during 2. Pulmonary Embolism Ruled Out Initially suspected due to high Wells Score = 9 and markedly elevated D-dimer = 11.36 mg/L. PE ruled out by V/Q scan. No right heart strain, no hypoxia. Discontinued PE heparin protocol No further PE-specific imaging needed Continue anticoagulation per ACS protocol Discontinued coagulopathy profile 3. Acute on chronic Kidney Injury acute tubular necrosis probably Likely due to renal hypoperfusion in the context of ACS and decreased intake. Elevated BUN/Cr in functionally single kidney (s/p nephrectomy). Monitor BMP daily Follow up with urine lytes Gentle IV fluids if not fluid-overloaded, NS at 100 cc/hour Hold nephrotoxic agents Adjust meds for renal dosing 4. Hyperkalemia Mild, Secondary to JEREMÍAS and Hyperglycemia Likely multifactorial: JEREMÍAS + uncontrolled DM + lisinopril. Insulin administered to shift K+ intracellularly Monitor potassium and BMP [id number] Hold lisinopril until potassium stable 5. Type 2 Diabetes Mellitus Poorly Controlled A1c 7.7 Diabetic foot ulcer Patient on high insulin regimen: glargine 20 units HS, aspart TID. Monitor glucose levels daily Wound care consult ordered 6. 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 DOAC held on admission. Currently anticoagulated with heparin for ACS. Resume DOAC post-ACS per cardiology Monitor for bleeding, especially if antiplatelets added Date of Service: Nov 20, 2024 Billing Provider: MEGHAN COFFEY MD, GAURAV, RES Nov 20, 2024 20:14
[2024-11-20] MEDS ORDERED: metoprolol tartrate 1mg/ml inj IV PRN (20:55)
[2024-11-20] MEDS ORDERED: aminophylline 500mg/20ml vial IV PRN (20:55)
[2024-11-20] MEDS: insulin glargine (Lantus) pen - multi-dose SQ ONE (21:33)
[2024-11-21] VITALS (15 sets, daily range): BP systolic 101–139; BP diastolic 63–94; PULSE 77–102; RESP 14–21; TEMP 97.2–98; O2SAT 94–99
[2024-11-21 07:33] LABS: MEAN PLATELET VOLUME 8.7 FL (7.4-10.4); RED CELL DISTRIBUTION WIDTH 13.7 % (11.5-14.5)
[2024-11-21 07:58] LABS: CHOL/HDL RATIO 4.3 (0.00-4.99); LDL CHOLESTEROL 119 MG/DL (50-100)
[2024-11-21] MEDS: metoprolol succinate 25mg (24-HOUR) SR. Tablet PO SCH (08:51)
[2024-11-21] MEDS: MESSAGE TO NURSING IV ONE ×3 (08:57→20:25)
[2024-11-21] MEDS: heparin 25,000 UNIT/250ml bag 250 ML IV PRN (11:44)
[2024-11-21] MEDS: regadenoson 0.4mg/5ml syringe IV PRN (14:24)
--- NOTE | 2024-11-21 14:59 | PROGRESS NOTE- Residence ---
Progress Note - Resident Providers to CC Resident Creating Document: ARNOLD JOHNSON RES ~ Antibiotic Timeout Antibiotic Ordered?: No Subjective Patient seen and examined bedside, denied any chest pain today. No acute overnight symptoms. Objective Vital Signs Date Time Temp Pulse Resp B/P (MAP) Pulse Ox O2 Delivery O2 Flow Rate FiO2 11/21/24 14:48 98 14 103/63 98 Nasal Cannula 2.0 11/21/24 06:00 97.5 Result Diagram: 11/21/24 0703 11/21/24 0703 Awake , alert, and oriented x4, resting comfortably in the bed, in no acute distress HEENT: Atraumatic, normocephalic, EOMI, anicteric sclera ; pink conjunctiva Neck: Trachea midline. Supple, full range of motion, no JVD Cardiac: Regular rhythm, regular rate with no murmurs all over the precordium. Respiratory: Equal breath sounds bilaterally, no tachypnea, no wheezing ,rub or rales, Chest wall is symmetric and without deformity. Gastrointestinal: Abdomen symmetric, non-distended, soft, non-tender, normal bowel sounds x4 quadrant, normoactive, no hepatosplenomegaly Musculoskeletal: Left foot ulcer, dressing in place Neurological: Speech is clear, alert, and oriented x 4. No motor or sensory deficit, deep tendon reflexes normal, cerebellar intact. Cranial nerves II-XII intact. Skin: Warm and dry Coagulation Studies Laboratory Tests Test 11/19/24 20:38 11/20/24 10:57 11/20/24 13:54 11/21/24 13:03 D-Dimer 11.36 MG/L FEU (0-0.50) H D-Dimer Comment Prothrombin Time 10.9 SECONDS (9.0-12.0) INR International Normalized Ratio 1.1 INR Activated Partial Thromboplast Time 54 SECONDS (22-32) H APTT (Heparin Protocol) 46 SECONDS (45-60) Coagulation Comments Advance Care Planning Advanced Care plannin - 30 Minutes Assessment Assessment 69-year-old male, presented with chest tightness, troponins were elevated suggestive of NSTEMI, continue heparin protocol. Lexiscan ordered for tomorrow Plan Plan 1. NSTEMI Intermediate Risk (Type 1) FABIOLA Score: 3 (Age >65, CAD risk factors, elevated Trop) - Intermediate risk KRISTAL Score: 122 Intermediate mortality risk (36%) Hypertension Patient presented with chest tightness, SOB, and weakness without syncope or dizziness. Troponin elevated, EKG without ST elevation, symptoms consistent with ACS. PE ruled out with negative V/Q scan. Transitioned from PE protocol to ACS management. Cardiology consulted (Dr. Vallejo), recommended Lexiscan Echocardiography shows right ventricular enlargement hypokinesis left ventricle concentric hypertrophy with normal contractility. Dr. Vallejo discussed the option of coronary angiography with the patient and the patient has declined to avoid renal damage. Cardiology recommended Lexiscan to evaluate for ischemia. If Lexiscan is abnormal then the patient may be willing to take the risk of diagnostic coronary angiography. Ordered Lexiscan per Cardiology Initiated atorvastatin 80 mg, metoprolol tartrate 25 mg once daily Continue telemetry, monitor for ischemia Morphine PRN for chest pain Holding off lisinopril for now in view of his JEREMÍAS, we will initiate amlodipine if blood pressures during 11/21/2024: Lexiscan today, continue atorvastatin 80 mg, metoprolol tartrate 25 mg once daily Cardiology to be reconsulted tomorrow based on Lexiscan Heparin drip to be continued for now, further decision regarding continuation versus discontinuation based on Lexiscan results 2. Pulmonary Embolism Ruled Out Initially suspected due to high Wells Score = 9 and markedly elevated D-dimer = 11.36 mg/L. PE ruled out by V/Q scan. No right heart strain, no hypoxia. Discontinued PE heparin protocol No further PE-specific imaging needed Continue anticoagulation per ACS protocol Discontinued coagulopathy profile 3. Acute on chronic Kidney Injury acute tubular necrosis probably Likely due to renal hypoperfusion in the context of ACS and decreased intake. Elevated BUN/Cr in functionally single kidney (s/p nephrectomy). Monitor BMP daily Follow up with urine lytes Gentle IV fluids if not fluid-overloaded, NS at 100 cc/hour Hold nephrotoxic agents Adjust meds for renal dosing 11/21/2024: Pending urine lytes, creatinine trending down to 1.84, NS at 100 cc/hour to be continue 4. Hyperkalemia Mild, Secondary to JEREMÍAS and Hyperglycemia Likely multifactorial: JEREMÍAS + uncontrolled DM + lisinopril. Insulin administered to shift K+ intracellularly Monitor potassium and BMP [id number] Hold lisinopril until potassium stable 11/21/2024 potassium normalized to 4.4 today 5. Type 2 Diabetes Mellitus Poorly Controlled A1c 7.7 Diabetic foot ulcer Patient on high insulin regimen: glargine 20 units HS, aspart TID. Monitor glucose levels daily Wound care consult ordered 6. 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 DOAC held on admission. Currently anticoagulated with heparin for ACS. Resume DOAC post-ACS per cardiology Monitor for bleeding, especially if antiplatelets added Code Status: full code DVT Prophylaxis: Heparin drip Line/tubes: PIV Nutrition: Heart healthy diet PT: Ordered Prognosis: Guarded Disposition: Pending Lexiscan today Arnold Johnson MD Internal Medicine Resident, PGY-2 Date of Service: Nov 21, 2024 Billing Provider: MEGHAN COFFEY MD, GAURAV, RES Nov 21, 2024 14:59
[2024-11-21 15:33] LABS: CREATININE 1.84 MG/DL (0.60-1.10); TOTAL CARBON DIOXIDE 23.6 MMOL/L (24-32); eCRCL 40 ML/MIN; eGFR 36 ML/MIN
--- NOTE | 2024-11-21 15:56 | RADIOLOGY REPORT ---
Reason for study/Clinical History: Chest tightness, could not undergo cardiac catheterization due to increased Comparison Study: None Myocardial Perfusion Study with SPECT Technique: The patient received an intravenous injection of 8.0 mCi of technetium-99m Sestamibi vamshii sakina at rest. After a short delay, SPECT tomographic images of the heart were obtained. The patient ananya asencio went to the stress lab where they received an intravenous Lexiscan utilizing standard protocol. 32 mCi of technetium-99m Sestamibi was injected intravenously immediately after the start of the in fusion. Gated SPECT tomographic images of the heart were acquired and processed. Findings: Rotating planar images show no significant attenuation artifact. The left ventricular size is within normal limits. Stress tomographic images demonstrate normal perfusion. Resting tomographic images demonstrate a similar pattern. Gated portion of the study shows normal wall motion and myocardial thickening. The left ventricular ejection fraction is 75 %. (normal greater than 50%) Impression: Normal left ventricular size, wall motion, and function, without evidence of infarction or of myocard ium at ischemic risk. The left ventricular ejection fraction is 75 %.
--- NOTE | 2024-11-21 16:20 | CARDIOLOGY REPORT ---
APPROVED REPORT EXAM: Comprehensive 2D, Doppler, and color-flow Echocardiogram. Patient Location: [facility] Blood Pressure: 111/74 mmHg Heart Rate: 102- 136 bpm Rhythm: Atrial Fibrillation Indications Coronary Artery Disease Shortness of Breath Troponin: 3332 Diabetes DVT NO FILTER PRESS TENDER HEAD Previous ECHO: 10/11/23, [facility], EF: 65-70 2D Dimensions LA Diam2.8 cm IVSd 1.3 (0.7-1.1cm) LVDd 3.6 cm PWd 1.1 (0.7-1.1cm) IVSs 1.9 (0.8-1.2cm) LVDs 1.9 (2.5-4.0cm) PWs 1.8 (0.8-1.2cm) LVOT Diameter 2.24 (1.8-2.4cm) LVEF(%) 79.6 (>50%) Ao Asc Diam.3.16 cm IVC 22.95 mmFS (%) 47.4 % SV 43.6 ml CO 4.1 L/min M-Mode Dimensions Left Atrium(MM) 3.70 (2.5-4.0cm) Aortic Root 3.60 (2.2-3.7cm) Aortic Cusp Exc 2.02 (1.5-2.0cm) MV EPSS 0.6 (<0.5cm) Aortic Valve AoV Peak Abimael. 118.5 cm/s AoV VTI 18.0 cm AO Peak GR. 5.6 mmHg AO Mean GR. 3 mmHg LVOT VTI 16.79 cm LVOT Peak Abimael. 93.8 cm/s EVA(VTI)/BSA 3.68 cm2/m2 EVA (VTI) 3.68 cm2 Mitral Valve MV E Velocity 45.7 cm/s MV Peak Gr. 1 mmHg MV DECEL TIME 168 ms MV A Velocity 95.4 cm/s MV PHT 60 ms E/A Ratio 0.5 MVA (PHT) 3.67 cm2 MV VMax48.9 cm/s TDI Lateral E' P. V8.29 cm/s E/Lateral E' 5.5 Tricuspid Valve TR P. Velocity 287 cm/s RAP ESTIMATE 10 mmHg TR Peak Gr. 33 mmHg RVSP 43 mmHg LEFT VENTRICLE The left ventricle is normal size with mild proximal septal thickening. Overall systolic function is hyperdynamic. Overall LVEF is 75-80%. RIGHT VENTRICLE Right ventricle is mildly dilated with normal function. ATRIA The left atrium size is normal. AORTIC VALVE Trileaflet AV appears mildly sclerotic without stenosis. No insufficiency. MITRAL VALVE Mild mitral annular calcification without stenosis. Trace reguritation. TRICUSPID VALVE The tricuspid valve is normal in structure with mild regurgitation. PULMONIC VALVE The pulmonary valve is normal in structure with trace insufficiency. GREAT VESSELS The aortic root is normal in size. The ascending aorta is normal in size. IVC is dilated and collapse s greater than 50% with inspiration. PERICARDIUM Normal pericardium. No effusion. Other Information Study Quality: Adequate Conclusion Overall LVEF is 75-80%. The left ventricle is normal size with mild proximal septal thickening. Overall systolic function is hyperdynamic. Right ventricle is mildly dilated with normal function. Trileaflet AV appears mildly sclerotic without stenosis. No insufficiency. Mild mitral annular calcification without stenosis. Trace reguritation. The tricuspid valve is normal in structure with mild regurgitation. The pulmonary valve is normal in structure with trace insufficiency. Normal pericardium. No effusion.
[2024-11-22] VITALS (27 sets, daily range): BP systolic 112–180; BP diastolic 83–109; PULSE 98–130; RESP 18–35; TEMP 97.6–98.2; O2SAT 86–97
[2024-11-22 02:27] LABS: MEAN PLATELET VOLUME 8.8 FL (7.4-10.4); RED CELL DISTRIBUTION WIDTH 13.5 % (11.5-14.5)
[2024-11-22 02:39] LABS: CREATININE 1.70 MG/DL (0.60-1.10); TOTAL CARBON DIOXIDE 21.4 MMOL/L (24-32); eCRCL 44 ML/MIN; eGFR 40 ML/MIN
[2024-11-22] MEDS: MESSAGE TO NURSING IV ONE ×4 (04:05→21:20)
[2024-11-22] MEDS: heparin 25,000 UNIT/250ml bag 250 ML IV PRN (07:30)
[2024-11-22 09:10] LABS: ABG BASE EXCESS -5.5 mmol/L (-2.0-3.0); ABG HCO3 17.7 mmol/L (21.0-28.0); ABG OXYGEN SATURATION 88.4 % (94.0-98.0); ABG PCO2 (T) 28.6 mmHg (35.0-48.0); ABG PH (T) 7.409 (7.350-7.450); ABG PO2 (T) 55.0 mmHg (83.0-108.0); ALLEN'S TEST POSITIVE; FCOHb 0.7 % (0.5-1.5); FHHb 11.5 % (0.0-5.0); FIO2 58.0 mmHg/%; FMetHb 0.3 % (0.0-1.5); FO2Hb 87.5 % (94.0-98.0); MODE SALTER NASAL CANNULA; PATIENT TEMPERATURE 37.0; TOTAL HEMOGLOBIN 14.1 G/dl (13.5-17.5)
--- NOTE | 2024-11-22 09:52 | RADIOLOGY REPORT ---
CHEST RADIOGRAPH Indication: requring more oxygen Technique: Single frontal view of the chest was obtained COMPARISON: DI CHEST,SINGLE VIEW on DOS: 11/19/24, DI CHEST,SINGLE VIEW on DOS: 04/25/24, DI CHEST,SING LE VIEW on DOS: 10/10/23, CHEST,SINGLE VIEW on DOS: 10/20/22 FINDINGS: Lines and Tubes: None Lungs: Clear Pleura: No effusion. No pneumothorax. Cardiomediastinal contours: Unremarkable Bones: Unremarkable IMPRESSION: No acute disease.
[2024-11-22 11:14] LABS: MEAN PLATELET VOLUME 9.2 FL (7.4-10.4); RED CELL DISTRIBUTION WIDTH 13.8 % (11.5-14.5)
[2024-11-22 11:30] LABS: CREATININE 1.74 MG/DL (0.60-1.10); TOTAL CARBON DIOXIDE 21.7 MMOL/L (24-32); eCRCL 43 ML/MIN; eGFR 39 ML/MIN
[2024-11-22] MEDS: heparin 10,000 units/1 ML INJ IV PRN (12:50)
--- NOTE | 2024-11-22 12:56 | VASCULAR REPORT ---
Technique: Real-time ultrasound imaging, with color Doppler and compression of the bilateral common femoral vein, femoral vein, greater saphenous vein, and popliteal vein. Indication: Swelling Comparison: None Findings: Limited evaluation due to calf dressings. Partially occlusive deep vein thrombosis within the left superficial femoral vein, left popliteal vei n. Left lower extremity soft tissue edema. There is normal compressibility and flow augmentation in all of the imaged right lower extremity deep veins. Impression: Partially occlusive deep vein thrombosis of the left popliteal, superficial femoral veins.
[2024-11-22] MEDS ORDERED: heparin 10,000 units/1 ML INJ IV PRN (14:55)
[2024-11-22] MEDS ORDERED: heparin 25,000 UNIT/250ml bag 250 ML IV PRN (14:55)
[2024-11-22] MEDS: heparin 10,000 units/1 ML INJ IV ONE (15:10)
[2024-11-22] MEDS ORDERED: ipratropium/albuterol 3ml nebule NEB PRN (15:40)
[2024-11-22 16:10] LABS: PRO BRAIN NATRIURETIC PEPTIDE 6886 PG/ML (0-125)
[2024-11-22] MEDS: ipratropium/albuterol 3ml nebule NEB SCH (16:19)
--- NOTE | 2024-11-22 17:36 | CONSULTATION REPORT ---
Consult Providers to CC ~ History of Present Illness Reason for Admit\\Complaint: SOB History of Present Illness Presented to ER as a code "STEMI", however this was ruled out by Cardiology. Pt with SOB and H/O DVT non-compliant with treatment. Echo showing increase RV. VQ scan with low probability. US LE consistent with DVT. Started on Heparin drip. Today with worsening hypoxemia. Allergies: Coded Allergies: blueberry (Unverified Allergy, Unknown, 11/19/24) gabapentin (Verified Allergy, Unknown, 11/19/24) Home Medications Home Medications Active Reported Ozempic (Semaglutide) 1 Mg/0.75 Ml (4 Mg/3 Ml) Pen.injctr 0.5 Mg SUBCUT Q7D 30 Days Insulin Glargine (Insulin Glargine,Hum.rec.anlog) 100 Unit/Ml Vial 34 Unit SQ HS Insulin Aspart 100 Unit/Ml Vial 10 Unit SQ TID Pt gets 35 units-35 units-30units each day D3-2000 (Cholecalciferol (Vitamin D3)) 50 Mcg Capsule 100 Mcg PO DAILY B Complex (Vitamin B Complex) 1 Each Tablet 1 Tab PO DAILY Xarelto (Rivaroxaban) 10 Mg Tablet 1 Tab PO QPM take with meals Lisinopril 5 Mg Tablet 0.5 Tab PO DAILY Past Medical History Past Medical History See H&P ROS ROS See H&P Exam Vitals: Vital Signs Date Time Temp Pulse Resp B/P (MAP) Pulse Ox O2 Delivery O2 Flow Rate FiO2 11/22/24 16:48 120 27 96 90 26 11/22/24 16:30 High Flow Nasal Cannula 50.0 11/22/24 11:00 97.7 146/94 (111) General: Comfortable HEENT: HARVINDER, EOMI Neck: Supple, No JVD Chest: Clear Cardiovascular: S1-2 reg Abdomen: Soft, non-tender, BS (+) Extremities: No edema Central Nervous System: Awake Diagnostic Data Last Recorded Lab Results: 11/22/24 0956 11/22/24 0956 Diagnostic Data: Laboratory Tests Test 11/20/24 13:54 11/22/24 09:56 Prothrombin Time 10.9 SECONDS (9.0-12.0) INR International Normalized Ratio 1.1 INR Activated Partial Thromboplast Time 54 SECONDS (22-32) H APTT (Heparin Protocol) 35 SECONDS (45-60) L D-Dimer 2.26 MG/L FEU (0-0.50) H D-Dimer Comment Coagulation Comments Additional Plan 1-Severe Hypoxemia -Titrate O2 for SpO2>88% 2-DVT/PE -Continue Heparin drip -If condition deteriorates may require Thrombolytics -Anticoagulation for life No need for ICU A Jesus Sepsis Screening Reassessment Date: Nov 22, 2024 MAURICE LEWIS MD Nov 22, 2024 17:36
--- NOTE | 2024-11-22 18:01 | PROGRESS NOTE- Residence ---
Progress Note - Resident Providers to CC Resident Creating Document: MIGEL BERNABE RES ~ Antibiotic Timeout Antibiotic Ordered?: No Subjective Patient was seen and examined bedside, patient was in acute distress today requiring more oxygen. Patient is currently on high-flow nasal cannula. Objective Vital Signs Date Time Temp Pulse Resp B/P (MAP) Pulse Ox O2 Delivery O2 Flow Rate FiO2 11/22/24 17:35 125 30 90 50.0 97 11/22/24 16:30 High Flow Nasal Cannula 11/22/24 11:00 97.7 146/94 (111) Awake , alert, and oriented x4, in acute distress HEENT: Atraumatic, normocephalic, EOMI, anicteric sclera ; pink conjunctiva Neck: Trachea midline. Supple, full range of motion, no JVD Cardiac: Regular rhythm, regular rate with no murmurs all over the precordium. Respiratory: Equal breath sounds bilaterally, tachypnea, no wheezing ,rub or rales, lungs clear on auscultation Gastrointestinal: Abdomen symmetric, non-distended, soft, non-tender, normal bowel sounds x4 quadrant, normoactive, no hepatosplenomegaly Musculoskeletal: Left foot ulcer, dressing in place Neurological: Speech is clear, alert, and oriented x 4. No motor or sensory deficit, deep tendon reflexes normal, cerebellar intact. Cranial nerves II-XII intact. Skin: Warm and dry Result Diagram: 11/22/24 0956 11/22/24 0956 Coagulation Studies Laboratory Tests Test 11/20/24 13:54 11/22/24 09:56 Prothrombin Time 10.9 SECONDS (9.0-12.0) INR International Normalized Ratio 1.1 INR Activated Partial Thromboplast Time 54 SECONDS (22-32) H APTT (Heparin Protocol) 35 SECONDS (45-60) L D-Dimer 2.26 MG/L FEU (0-0.50) H D-Dimer Comment Coagulation Comments Assessment Assessment 69-year-old male, presented with chest tightness, troponins were elevated suggestive of NSTEMI, continue heparin protocol. Lexiscan ordered for tomorrow Plan Plan 1. Acute Hypoxic Respiratory Failure secondary to possible acute PE Pulmonary Embolism High Suspicion Despite Negative V/Q Scan High Wells Score (9), markedly elevated initial D-dimer (11.36 mg/L) Patient acutely decompensated on 11/22, requiring escalation from 5 L nasal cannula to high-flow nasal cannula (HFNC) at 3040 L/min, SpO2 dropped to 87%.Patient eventually required Bipap. Dr. Lee was consulted, evaluated the patient and was okay with the oxygen saturating between 88-90% discontinued the BiPAP and put the patient on high-flow nasal cannula. According to Dr. Lee, patient does not require ICU admission as of now but we will continue to closely monitor the patient if he requires ICU during the night if his condition deteriorates. Continue DuoNeb q.2h p.r.n. q.4h scheduled, methylprednisolone 60 mg IV b.i.d. V/Q scan negative, but due to acute clinical deterioration and presence of DVT, PE could not be fully ruled out Repeat D-dimer 2.26 mg/L Vascular ultrasound was done which showed: Partially occlusive deep vein thrombosis of the left popliteal, superficial femoral veins. Treated empirically with heparin(PE PROTOCOL) Monitor for bleeding, respiratory status, and any signs of hemodynamic compromise 2. Active Deep Vein Thrombosis (DVT) Newly diagnosed partially occlusive thrombus in left popliteal and superficial femoral veins confirmed on venous duplex History of prior DVT; previously on rivaroxaban, which was held on admission Currently on therapeutic IV heparin Plan to resume DOAC post-stabilization Monitor for bleeding risk and leg symptoms 3. NSTEMI Type 2 [place] vs ACS High clinical suspicion for ACS, ruled out with stress test Presented with chest tightness, SOB, elevated troponins, no ST elevation Echo: EF 5055%, RV enlargement, regional wall motion abnormalities Lexiscan (11/21): No reversible ischemia Cardiology (Dr. Vallejo) consulted; coronary angiography deferred by patient Continue atorvastatin 80 mg, metoprolol tartrate 25 mg daily, and telemetry monitoring Heparin drip continued for now per PE protocol Lisinopril held due to JEREMÍAS; however blood pressures have been soft since yesterday Morphine PRN for chest discomfort 3. Acute on chronic Kidney Injury acute tubular necrosis probably Likely due to renal hypoperfusion in the context of ACS and decreased intake. Elevated BUN/Cr in functionally single kidney (s/p nephrectomy). Monitor BMP daily Follow up with urine lytes Gentle IV fluids if not fluid-overloaded, NS at 100 cc/hour Hold nephrotoxic agents Adjust meds for renal dosing 11/21/2024: Pending urine lytes, creatinine trending down to 1.84, NS at 100 cc/hour to be continue 11/22/24: Patient's creatinine was at 1.74 today were discontinued the fluids in view of fluid overload 4. Hyperkalemia Mild, Secondary to JEREMÍAS and Hyperglycemia Likely multifactorial: JEREMÍAS + uncontrolled DM + lisinopril. Insulin administered to shift K+ intracellularly Monitor potassium and BMP [id number] Hold lisinopril until potassium stable 11/21/2024 potassium normalized to 4.4 today 5. Type 2 Diabetes Mellitus Poorly Controlled A1c 7.7 Diabetic foot ulcer Patient on high insulin regimen: glargine 20 units HS, aspart TID. Monitor glucose levels daily Wound care consult ordered 6. 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 DOAC held on admission. Currently anticoagulated with heparin for ACS. Resume DOAC post-ACS per cardiology Monitor for bleeding, especially if antiplatelets added Code Status: full code DVT Prophylaxis: Heparin drip Line/tubes: PIV Nutrition: Heart healthy diet PT: Ordered Prognosis: Guarded Disposition: Patient underwent Lexiscan which was negative .patient started requiring increasing oxygen and is currently on high-flow nasal cannula might be transferred to the ICU if his condition deteriorates further Migel Bernabe MD Internal Medicine Resident, PGY-1 Date of Service: Nov 22, 2024 Billing Provider: MEGHAN COFFEY MD, JAHNAVI, RES Nov 22, 2024 18:01
[2024-11-22] MEDS: methylPREDNISolone sod succ/PF 40mg inj. IV SCH (21:08)
[2024-11-23] VITALS (27 sets, daily range): BP systolic 95–146; BP diastolic 57–96; PULSE 90–114; RESP 15–36; TEMP 97.2–98.1; O2SAT 92–100
[2024-11-23] MEDS: heparin 25,000 UNIT/250ml bag 250 ML IV PRN (02:16)
[2024-11-23 04:17] LABS: MEAN PLATELET VOLUME 8.7 FL (7.4-10.4); RED CELL DISTRIBUTION WIDTH 13.3 % (11.5-14.5)
[2024-11-23 04:26] LABS: CREATININE 2.14 MG/DL (0.60-1.10); TOTAL CARBON DIOXIDE 21.0 MMOL/L (24-32); eCRCL 35 ML/MIN; eGFR 31 ML/MIN
--- NOTE | 2024-11-23 09:26 | PROGRESS NOTE ---
Progress Note Dictate Providers to CC ~ Progress Note: Remains on HFNC Central Line/PICC still needed: N\A Manjarrez Indications Met/Not Met: F/C Indications Not Met Antibiotic Ordered?: No Subjective Subjective Dyspneic Objective Vitals Vital Signs Date Time Temp Pulse Resp B/P (MAP) Pulse Ox O2 Delivery O2 Flow Rate FiO2 11/23/24 07:51 110 28 93 40.0 93 11/23/24 07:50 High Flow Nasal Cannula 11/23/24 06:00 97.2 135/96 (109) Lab Results: 11/23/24 0350 11/23/24 0350 Objective Heart: S1-2 Lungs: Clear Abdomen: soft, non-tender, BS (+) Ext: No edema Coagulation Studies Laboratory Tests Test 11/20/24 13:54 11/22/24 09:56 11/23/24 03:50 Prothrombin Time 10.9 SECONDS (9.0-12.0) INR International Normalized Ratio 1.1 INR Activated Partial Thromboplast Time 54 SECONDS (22-32) H D-Dimer 2.26 MG/L FEU (0-0.50) H D-Dimer Comment APTT (Heparin Protocol) 46 SECONDS (45-75) Coagulation Comments Problem\Assessment\Plan Additional Plan 1-Severe Hypoxemia -Titrate O2 for SpO2>92% 2-PE/DVT -Proceed with thrombolytics Maddie Lee CC time 35min Sepsis Screening Reassessment Date: Nov 23, 2024 MAURICE LEE MD Nov 23, 2024 09:26
[2024-11-23] MEDS: tenecteplase 50mg kit IV ONE (11:15)
[2024-11-23 13:35] LABS: APTT 37 SECONDS (22-32)
[2024-11-23] MEDS: COMMUNICATION ORDER 1 EA MISC MC ONE (14:13)
--- NOTE | 2024-11-23 19:37 | PROGRESS NOTE- Residence ---
Progress Note - Resident Providers to CC Resident Creating Document: ARNOLD JOHNSON RES ~ Antibiotic Timeout Antibiotic Ordered?: No Subjective Patient was seen and examined bedside, he was transferred after receiving thrombolytics in ICU today. His oxygen requirement drastically reduced to 6 L of oxygen via HFNC. Objective Vital Signs Date Time Temp Pulse Resp B/P (MAP) Pulse Ox O2 Delivery O2 Flow Rate FiO2 11/23/24 18:30 95 96 11/23/24 15:09 97.5 18 102/70 (81) High Flow Nasal Cannula 6.0 11/23/24 14:00 55 Result Diagram: 11/23/24 0350 11/23/24 0350 Awake , alert, and oriented x4, in apparent distress HEENT: Atraumatic, normocephalic, EOMI, anicteric sclera ; pink conjunctiva Neck: Trachea midline. Supple, full range of motion, no JVD Cardiac: Regular rhythm, regular rate with no murmurs all over the precordium. Respiratory: Equal diminished breath sounds bilaterally, mild rales present, no tachypnea, no wheezing, Chest wall is symmetric and without deformity. Gastrointestinal: Abdomen symmetric, non-distended, soft, non-tender, normal bowel sounds x4 quadrant, normoactive, no hepatosplenomegaly Musculoskeletal: Left foot ulcer, dressing in place Neurological: Could not be performed Skin: Warm and dry Coagulation Studies Laboratory Tests Test 11/20/24 13:54 11/22/24 09:56 11/23/24 12:53 11/23/24 18:26 Prothrombin Time 10.9 SECONDS (9.0-12.0) INR International Normalized Ratio 1.1 INR D-Dimer 2.26 MG/L FEU (0-0.50) H D-Dimer Comment Activated Partial Thromboplast Time 37 SECONDS (22-32) H Coagulation Comments Advance Care Planning Advanced Care plannin - 30 Minutes Assessment Assessment 69-year-old male, presented with chest tightness, troponins were elevated suggestive of NSTEMI, Ruled out ACS with a stress test. In suspicion of PE, V/Q scan was done which showed a low probability, but due to high suspicion patient was transferred to ICU and received tPA with significantly improved his requirement for oxygen and and is currently receiving heparin per PE protocol. Plan Plan 1. Acute Hypoxic Respiratory Failure secondary to possible acute PE Pulmonary Embolism High Suspicion Despite Negative V/Q Scan High Wells Score (9), markedly elevated initial D-dimer (11.36 mg/L) Patient acutely decompensated on 11/22, requiring escalation from 5 L nasal cannula to high-flow nasal cannula (HFNC) at 3040 L/min, SpO2 dropped to 87%. Transferred to ICU, received thrombolytic therapy given concern for underlying PE with concurrent DVT. Patient showed significant improvement in oxygenation post-thrombolysis. Transferred back to PCU today for continued monitoring and anticoagulation. Currently stable, requiring only 6 L/min via HFNC with SpO2 >93%. Continue HFNC, close monitoring of respiratory and hemodynamic status. Continue DuoNeb q.2h p.r.n. q.4h scheduled, methylprednisolone 60 mg IV b.i.d. V/Q scan negative, but due to acute clinical deterioration and presence of DVT, PE could not be fully ruled out Repeat D-dimer 2.26 mg/L Treated empirically with IV heparin drip and thrombolytics, with good clinical response Continue therapeutic anticoagulation with IV heparin drip Monitor for bleeding, respiratory status, and any signs of hemodynamic compromise 2. Active Deep Vein Thrombosis (DVT) History of DVT, on rivaroxaban 10 mg daily, inappropriate dosing outpatient, treatment failure Newly diagnosed partially occlusive thrombus in left popliteal and superficial femoral veins confirmed on venous duplex History of prior DVT; previously on rivaroxaban, which was held on admission Currently on therapeutic IV heparin Plan to resume DOAC post-stabilization Monitor for bleeding risk and leg symptoms 3. NSTEMI Type 2 [place] vs ACS High clinical suspicion for ACS, ruled out with stress test Presented with chest tightness, SOB, elevated troponins, no ST elevation Echo: EF 5055%, RV enlargement, regional wall motion abnormalities Lexiscan (11/21): No reversible ischemia Cardiology (Dr. Vallejo) consulted; coronary angiography deferred by patient Continue atorvastatin 80 mg, metoprolol tartrate 25 mg daily, and telemetry monitoring Heparin drip continued for now per PE protocol Lisinopril held due to JEREMÍAS; however blood pressures have been soft since yesterday Morphine PRN for chest discomfort 4. 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 Hyperkalemia Resolved Multifactorial: JEREMÍAS + DM + lisinopril Treated with insulin/glucose Potassium normalized to 4.4 Continue to monitor BMP, lisinopril remains on hold 6. Type 2 Diabetes Mellitus Suboptimally Controlled Diabetic foot ulcer A1c: 7.7% On glargine 20 units HS, aspart TID Continue current insulin regimen Wound care consult ordered for diabetic foot ulcer 7. Hypertension Continue metoprolol tartrate 25 mg daily Lisinopril held due to renal impairment and prior hyperkalemia Amlodipine may be initiated based on ongoing BP needs Code Status: Full code DVT Prophylaxis: Heparin drip Nutrition: Heart healthy diet PT: Ordered Prognosis: Guarded Critical care time- > 30 minutes Disposition: Monitor vitals regularly, we will continue to reassess his O2 requirement Arnold Johnson MD Internal Medicine Resident, PGY-2 Date of Service: Nov 23, 2024 Billing Provider: MEGHAN COFFEY MD, GAURAV, RES Nov 23, 2024 19:37
[2024-11-23] MEDS: MESSAGE TO NURSING IV ONE (21:20)
[2024-11-24] VITALS (11 sets, daily range): BP systolic 93–119; BP diastolic 49–72; PULSE 80–102; RESP 15–20; TEMP 97.5–97.9; O2SAT 94–97
[2024-11-24 04:18] LABS: MEAN PLATELET VOLUME 9.2 FL (7.4-10.4); RED CELL DISTRIBUTION WIDTH 13.8 % (11.5-14.5)
[2024-11-24 04:20] LABS: CREATININE 2.52 MG/DL (0.60-1.10); TOTAL CARBON DIOXIDE 19.5 MMOL/L (24-32); eCRCL 30 ML/MIN; eGFR 25 ML/MIN
[2024-11-24] MEDS: MESSAGE TO NURSING IV ONE ×2 (05:19→10:24)
[2024-11-24] MEDS: normal saline 1000ml 1,000 ML IV SCH (08:39)
--- NOTE | 2024-11-24 14:29 | PROGRESS NOTE- Residence ---
Progress Note - Resident Providers to CC Resident Creating Document: ARNOLD JOHNOSN RES ~ Antibiotic Timeout Antibiotic Ordered?: No Subjective Patient was seen and examined bedside, his oxygen requirement, trended down to 4 L of oxygen via nasal cannula. Patient is symptomatically better, understands that he will further be requiring Eliquis and he failed outpatient treatment with rivaroxaban. Objective Vital Signs Date Time Temp Pulse Resp B/P (MAP) Pulse Ox O2 Delivery O2 Flow Rate FiO2 11/24/24 11:00 97.9 87 16 93/49 (64) 95 Nasal Cannula 2.0 11/24/24 07:36 36 Result Diagram: 11/24/2433411/24/24 033 Awake , alert, and oriented x4, in apparent distress HEENT: Atraumatic, normocephalic, EOMI, anicteric sclera ; pink conjunctiva Neck: Trachea midline. Supple, full range of motion, no JVD Cardiac: Regular rhythm, regular rate with no murmurs all over the precordium. Respiratory: Equal diminished breath sounds bilaterally, mild rales present, no tachypnea, no wheezing, Chest wall is symmetric and without deformity. Gastrointestinal: Abdomen symmetric, non-distended, soft, non-tender, normal bowel sounds x4 quadrant, normoactive, no hepatosplenomegaly Musculoskeletal: Left foot ulcer, dressing in place Neurological: Could not be performed Skin: Warm and dry Coagulation Studies Laboratory Tests Test 11/20/24 13:54 11/22/24 09:56 11/23/24 12:53 11/24/24 09:19 Prothrombin Time 10.9 SECONDS (9.0-12.0) INR International Normalized Ratio 1.1 INR D-Dimer 2.26 MG/L FEU (0-0.50) H D-Dimer Comment Activated Partial Thromboplast Time 37 SECONDS (22-32) H APTT (Heparin Protocol) 80 SECONDS (45-75) H Coagulation Comments Advance Care Planning Advanced Care plannin - 30 Minutes Assessment Assessment 69-year-old male, presented with chest tightness, troponins were elevated suggestive of NSTEMI, Ruled out ACS with a stress test. In suspicion of PE, V/Q scan was done which showed a low probability, but due to high suspicion patient was transferred to ICU and received tPA with significantly improved his requirement for oxygen and received heparin per PE protocol. He is currently on Eliquis 10 mg p.o. b.i.d. Plan Plan 1. Acute Hypoxic Respiratory Failure secondary to possible acute PE Pulmonary Embolism High clinical Suspicion Despite Negative V/Q Scan High Wells Score (9), markedly elevated initial D-dimer (11.36 mg/L) Outpatient Rivaroxaban Failure Patient acutely decompensated on 11/22, requiring escalation from 5 L nasal cannula to high-flow nasal cannula (HFNC) at 3040 L/min, SpO2 dropped to 87%. Transferred to ICU, received thrombolytic therapy given concern for underlying PE with concurrent DVT. Patient showed significant improvement in oxygenation post-thrombolysis. Transferred back to PCU today for continued monitoring and anticoagulation. Currently stable, requiring only 6 L/min via HFNC with SpO2 >93%. Continue HFNC, close monitoring of respiratory and hemodynamic status. Continue DuoNeb q.2h p.r.n. q.4h scheduled, methylprednisolone 60 mg IV b.i.d. V/Q scan negative, but due to acute clinical deterioration and presence of DVT, PE could not be fully ruled out Repeat D-dimer 2.26 mg/L Treated empirically with IV heparin drip and thrombolytics, with good clinical response Continue therapeutic anticoagulation with IV heparin drip Monitor for bleeding, respiratory status, and any signs of hemodynamic compromise 11/24/2024: Discontinued heparin infusion today Oxygen requirement trended down from 6 L of oxygen via HFNC to 4 lit of oxygen via nasal cannula Due to unsuccessful outpatient treatment with rivaroxaban, started Eliquis 10 mg orally twice a day (to be maintained for 7 days), then transitioning to 5 mg orally twice a day. Considering his deteriorating kidney function and background of chronic kidney disease and nephrectomy, Eliquis presents a safer alternative, and rivaroxaban should be avoided. Decreased IV methylprednisolone to 40 mg b.i.d., monitor blood sugars 2. Active Deep Vein Thrombosis (DVT) History of DVT, on rivaroxaban 10 mg daily Outpatient treatment failure Newly diagnosed partially occlusive thrombus in left popliteal and superficial femoral veins confirmed on venous duplex History of prior DVT; previously on rivaroxaban, which was held on admission Currently on therapeutic IV heparin Plan to resume DOAC post-stabilization Monitor for bleeding risk and leg symptoms 11/24/2024: Initiated Eliquis 10 mg b.i.d. today 3. NSTEMI Type 2 ID vs ACS High clinical suspicion for ACS, but stress test was negative Hyperlipidemia Presented with chest tightness, SOB, elevated troponins, no ST elevation Echo: EF 5055%, RV enlargement, regional wall motion abnormalities Lexiscan (11/21): No reversible ischemia Cardiology (Dr. Vallejo) consulted; coronary angiography deferred by patient Continue atorvastatin 80 mg, metoprolol tartrate 25 mg daily, and telemetry monitoring Lisinopril held due to JEREMÍAS; however blood pressures have been soft since yesterday Morphine PRN for chest discomfort 4. 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 Hyperkalemia Resolved Multifactorial: JEREMÍAS + DM + lisinopril Treated with insulin/glucose Potassium normalized to 4.4 Continue to monitor BMP, lisinopril remains on hold 6. Type 2 Diabetes Mellitus Suboptimally Controlled Diabetic foot ulcer A1c: 7.7% On glargine 20 units HS, aspart TID Continue current insulin regimen Wound care consult- for diabetic foot ulcer 7. Hypertension Continue metoprolol tartrate 25 mg daily Lisinopril held due to renal impairment and prior hyperkalemia Amlodipine may be initiated based on ongoing BP needs Code Status: Full code DVT Prophylaxis: Heparin drip Nutrition: Heart healthy diet PT: Ordered Prognosis: Guarded Disposition: Monitor vitals regularly, we will continue to reassess his O2 requirement Arnold Johnson MD Internal Medicine Resident, PGY-2 Date of Service: Nov 24, 2024 Billing Provider: MEGHAN COFFEY MD,ARNOLD, RES Nov 24, 2024 14:29
--- NOTE | 2024-11-24 15:26 | CONSULTATION REPORT - RESIDENT ---
Consult Providers to CC Resident Creating Document: JJ SCHERER RES History of Present Illness Primary Medical Doctor: ESAU Reason for Admit\Complaint: Shortness of breath History of Present Illness This is a 69-year-old male patient with a past medical history of insulin- dependent type 2 diabetes mellitus, CKD stage 3, in his cell carcinoma status post unilateral nephrectomy 25 years ago and history of DVT on Xarelto presents to the hospital with complaints of increasing shortness of breath that began on Sunday11/19/2024 and progressively worsened until Sunday requiring to come into the hospital for further evaluation. He was evaluated extensively for an NSTEMI versus a pulmonary embolism, was unable to get a CTA secondary to the unilateral kidney disease but Wells score was elevated to 9. V/Q scan revealed low probability. However, he was found to have a left lower extremity partially occlusive DVT. But due to high clinical suspicion, he underwent treatment with tenecteplase and was also evaluated by Cardiology with a Lexiscan to rule out an NSTEMI. He was on heparin drip but is now switch to Eliquis; with the plan to discharge on the new anticoagulation. Nephrology is consulted for evaluation of his increasing creatinine. Allergies: Coded Allergies: blueberry (Unverified Allergy, Unknown, 11/19/24) gabapentin (Verified Allergy, Unknown, 11/19/24) Home Medications Home Medications Active Reported Ozempic (Semaglutide) 1 Mg/0.75 Ml (4 Mg/3 Ml) Pen.injctr 0.5 Mg SUBCUT Q7D 30 Days Insulin Glargine (Insulin Glargine,Hum.rec.anlog) 100 Unit/Ml Vial 34 Unit SQ HS Insulin Aspart 100 Unit/Ml Vial 10 Unit SQ TID Pt gets 35 units-35 units-30units each day D3-2000 (Cholecalciferol (Vitamin D3)) 50 Mcg Capsule 100 Mcg PO DAILY B Complex (Vitamin B Complex) 1 Each Tablet 1 Tab PO DAILY Xarelto (Rivaroxaban) 10 Mg Tablet 1 Tab PO QPM take with meals Lisinopril 5 Mg Tablet 0.5 Tab PO DAILY Past Medical History Past Medical History Type 2 diabetes mellitus- insulin-dependent CKD stage 3 History of RCC 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 Lives at home with his . Independently ambulates and perform ADLs ROS ROS As stated above in the HPI, otherwise all systems are reviewed and negative. Exam Vitals: Vital Signs Date Time Temp Pulse Resp B/P (MAP) Pulse Ox O2 Delivery O2 Flow Rate FiO2 11/24/24 11:00 97.9 87 16 93/49 (64) 95 Nasal Cannula 2.0 11/24/24 07:36 36 General: General: Awake and Alert, no acute distress. HEENT: Conjunctiva pink, Sclera clear, Mucus Membranes moist. Resp: Unlabored. Lungs clear to auscultation bilaterally. Heart: Regular Rate and rhythm, normal S1 and S2 without murmur, rub or gallop. Abdomen: Soft and non tender no organomegaly Extremities: Left lower limb greater than right lower limb. 1+ pitting edema of the left lower limb. Chronic venous skin stasis changes on the left lower limb. Skin: Warm and Dry. Diffuse bruising of the upper extremities in the needle prick areas. Similar bruising on the fingertips from the blood glucose checks. Diagnostic Data Last Recorded Lab Results: 11/24/2433411/24/24334 Diagnostic Data: Laboratory Tests Test 11/20/24 13:54 11/22/24 09:56 11/23/24 12:53 11/24/24 09:19 Prothrombin Time 10.9 SECONDS (9.0-12.0) INR International Normalized Ratio 1.1 INR D-Dimer 2.26 MG/L FEU (0-0.50) H D-Dimer Comment Activated Partial Thromboplast Time 37 SECONDS (22-32) H APTT (Heparin Protocol) 80 SECONDS (45-75) H Coagulation Comments Additional Plan 1. 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 Patient NPO for procedures, received one dose of IV Lasix 40 mg and had a negative fluid balance of 1600 since 11/22 [id number]; likely causing the JEREMÍAS IV fluids at rate of 100 cc/hour started Continue IV resuscitation, encourage p.o. intake We will continue to follow in a.m. with repeat BMP Outpatient evaluation with progressively worsening renal function; consider stopping Ozempic if that is the case Hold of lisinopril at this time Renal diet Strict I&O monitoring 2. Acute hypoxemic respiratory failure: Suspect pulmonary embolism Wells score: 9; D-dimer is elevated to 11.36 on admission Switching anticoagulation regimen from Xarelto to Eliquis Outpatient evaluation for hypercoagulable disorders No recent imaging studies since resection of the RCC; could possibly consider abdominal CT 3. Type 2 diabetes mellitus: A1c 7.7 For age adjusted or A1c; he is pretty well-controlled Recommend blood sugar levels between 140-180 mg/dL Discussed in great detail with the patient regarding the elevation in blood glucose secondary to methylprednisone Continue sliding scale insulin 4. Moderate protein energy malnutrition: Nepro protein shakes Renal diet Lines: PIV Code status: Full code Jj Scherer PGY3, Internal medicine resident Date of Service: Nov 24, 2024 Billing Provider: REX SAVAGE III, DEEPANJALI, RES Nov 24, 2024 15:26
[2024-11-24] MEDS: lactose-reduced food (Ensure Enlive) - 237ml bottle PO SCH (17:50)
[2024-11-24] MEDS: methylPREDNISolone sod succ/PF 40mg inj. IV SCH (21:07)
[2024-11-25] VITALS (10 sets, daily range): BP systolic 101–135; BP diastolic 56–83; PULSE 72–83; RESP 12–19; TEMP 97–98.2; O2SAT 92–98
--- NOTE | 2024-11-25 01:01 | RADIOLOGY REPORT ---
INDICATION: JEREMÍAS TECHNIQUE: Multiple real-time sonographic images of the kidneys and bladder were obtained. COMPARISON: None FINDINGS: RIGHT kidney measures 11.0 x 6.2 x 5.4 cm in length with normal parenchymal echotexture and cortical thickness. 9 mm shadowing echogenic focus consistent with calculus. No hydronephrosis. LEFT kidney is removed. No large intraluminal masses are seen in the bladder. Post void residual not assessed. IMPRESSION: 1. Nonobstructive right nephrolithiasis. 2. Status post left nephrectomy.
[2024-11-25 05:39] LABS: CREATININE 2.36 MG/DL (0.60-1.10); TOTAL CARBON DIOXIDE 22.7 MMOL/L (24-32); eCRCL 32 ML/MIN; eGFR 27 ML/MIN
--- NOTE | 2024-11-25 09:25 | PROGRESS NOTE- Residence ---
Progress Note - Resident Providers to CC Resident Creating Document: JJ SCHERER, GLORY ~ Central Line/PICC still needed: No Manjarrez-Non Protocol Manjarrez Indications Met/Not Met: F/C Indications Not Met Antibiotic Timeout Antibiotic Ordered?: No Subjective Patient is doing well at bedside. Not requiring anymore oxygen supplementation. He has no other acute complaints. Objective Vital Signs Date Time Temp Pulse Resp B/P (MAP) Pulse Ox O2 Delivery O2 Flow Rate FiO2 11/25/24 08:49 76 16 93 Room Air* 0 21 11/25/24 06:00 97.1 130/70 (90) Result Diagram: 11/24/24 0335 11/25/24 0516 General: Awake and Alert, no acute distress. HEENT: Conjunctiva pink, Sclera clear, Mucus Membranes moist. Resp: Unlabored. Lungs clear to auscultation bilaterally. Heart: Regular Rate and rhythm, normal S1 and S2 without murmur, rub or gallop. Abdomen: Soft and non tender no organomegaly Extremities: Left lower limb greater than right lower limb. 1+ pitting edema of the left lower limb. Chronic venous skin stasis changes on the left lower limb. Skin: Warm and Dry. Diffuse bruising of the upper extremities in the needle prick areas. Similar bruising on the fingertips from the blood glucose checks. Coagulation Studies Laboratory Tests Test 11/20/24 13:54 11/22/24 09:56 11/23/24 12:53 11/24/24 16:15 Prothrombin Time 10.9 SECONDS (9.0-12.0) INR International Normalized Ratio 1.1 INR D-Dimer 2.26 MG/L FEU (0-0.50) H D-Dimer Comment Activated Partial Thromboplast Time 37 SECONDS (22-32) H APTT (Heparin Protocol) 41 SECONDS (45-75) L Coagulation Comments Assessment Assessment 69-year-old male, presented with chest tightness, troponins were elevated suggestive of NSTEMI, Ruled out ACS with a stress test. In suspicion of PE, V/Q scan was done which showed a low probability, but due to high suspicion patient was transferred to ICU and received tPA with significantly improved his requirement for oxygen and received heparin per PE protocol. He is currently switched to Eliquis 10 mg p.o. b.i.d. Plan Plan 1. 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 Renal ultrasound normal Renal function improving with the IV fluids However, slow improvement as the patient is still has significant negative fluid balance as his urine output over the last 24 hours was 2000 mL Negative fluid balance by 860 ml which is better than two days ago 1500 mL Continue close monitoring of BMP with the same management Outpatient recommendation: Follow up with [facility] ware finisher to increase lisinopril dose for renal protection and supplemented with Lokelma to control the potassium No additional recommendations at this time We will continue to follow 2. Acute hypoxemic respiratory failure: Resolved Suspect pulmonary embolism Wells score: 9; D-dimer is elevated to 11.36 on admission Switch to Eliquis. Stop heparin Outpatient evaluation for hypercoagulable disorders No recent imaging studies since resection of the RCC; could consider abdominal CT 3. Type 2 diabetes mellitus: A1c 7.7 For age adjusted or A1c; he is pretty well-controlled Recommend blood sugar levels between 140-180 mg/dL Discussed in great detail with the patient regarding the elevation in blood glucose secondary to methylprednisone Continue sliding scale insulin 4. Moderate protein energy malnutrition: Nepro protein shakes Renal diet Lines: PIV Code status: Full code Jj Scherer PGY3, Internal medicine resident Date of Service: Nov 25, 2024 Billing Provider: REX SAVAGE III, DEEPANJALI, RES Nov 25, 2024 09:25
--- NOTE | 2024-11-25 13:37 | PROGRESS NOTE- Residence ---
Progress Note - Resident Providers to CC Resident Creating Document: ARNOLD JOHNSON RES ~ Antibiotic Timeout Antibiotic Ordered?: No Subjective Patient is doing well at bedside. Comfortable and has no medical complaints currently. Is currently on room air maintaining saturations of 96%. Objective Vital Signs Date Time Temp Pulse Resp B/P (MAP) Pulse Ox O2 Delivery O2 Flow Rate FiO2 11/25/24 10:45 98.0 83 19 101/56 (71) 98 Room Air 11/25/24 08:49 0 21 Result Diagram: 11/24/24 0335 11/25/24 0516 Awake , alert, and oriented x4, in no distress HEENT: Atraumatic, normocephalic, EOMI, anicteric sclera ; pink conjunctiva Neck: Trachea midline. Supple, full range of motion, no JVD Cardiac: Regular rhythm, regular rate with no murmurs all over the precordium. Respiratory: Equal diminished breath sounds bilaterally, mild rales present, no tachypnea, no wheezing, Chest wall is symmetric and without deformity. Gastrointestinal: Abdomen symmetric, non-distended, soft, non-tender, normal bowel sounds x4 quadrant, normoactive, no hepatosplenomegaly Musculoskeletal: Left foot ulcer, dressing in place Neurological: No focal neurologic deficits, cranial nerve examination or Skin: Warm and dry Coagulation Studies Laboratory Tests Test 11/20/24 13:54 11/22/24 09:56 11/23/24 12:53 11/24/24 16:15 Prothrombin Time 10.9 SECONDS (9.0-12.0) INR International Normalized Ratio 1.1 INR D-Dimer 2.26 MG/L FEU (0-0.50) H D-Dimer Comment Activated Partial Thromboplast Time 37 SECONDS (22-32) H APTT (Heparin Protocol) 41 SECONDS (45-75) L Coagulation Comments Advance Care Planning Advanced Care plannin - 30 Minutes Assessment Assessment 69-year-old male, presented with chest tightness, troponins were elevated suggestive of NSTEMI, Ruled out ACS with a stress test. In suspicion of PE, V/Q scan was done which showed a low probability, but due to high suspicion patient was transferred to ICU and received tPA with significantly improved his requirement for oxygen and received heparin per PE protocol. He is currently on Eliquis 10 mg p.o. b.i.d. Plan Plan 1. Acute Hypoxic Respiratory Failure secondary to possible acute PE Pulmonary Embolism High clinical Suspicion Despite Negative V/Q Scan High Wells Score (9), markedly elevated initial D-dimer (11.36 mg/L) Outpatient Rivaroxaban Failure Patient acutely decompensated on 11/22, requiring escalation from 5 L nasal cannula to high-flow nasal cannula (HFNC) at 3040 L/min, SpO2 dropped to 87%. Transferred to ICU, received thrombolytic therapy given concern for underlying PE with concurrent DVT. Patient showed significant improvement in oxygenation post-thrombolysis. Transferred back to PCU today for continued monitoring and anticoagulation. Currently stable, requiring only 6 L/min via HFNC with SpO2 >93%. Continue HFNC, close monitoring of respiratory and hemodynamic status. Continue DuoNeb q.2h p.r.n. q.4h scheduled, methylprednisolone 60 mg IV b.i.d. V/Q scan negative, but due to acute clinical deterioration and presence of DVT, PE could not be fully ruled out Repeat D-dimer 2.26 mg/L Treated empirically with IV heparin drip and thrombolytics, with good clinical response Continue therapeutic anticoagulation with IV heparin drip Monitor for bleeding, respiratory status, and any signs of hemodynamic compromise 11/24/2024: Discontinued heparin infusion today Oxygen requirement trended down from 6 L of oxygen via HFNC to 4 lit of oxygen via nasal cannula Due to unsuccessful outpatient treatment with rivaroxaban, started Eliquis 10 mg orally twice a day (to be maintained for 7 days), then transitioning to 5 mg orally twice a day. Considering his deteriorating kidney function and background of chronic kidney disease and nephrectomy, Eliquis presents a safer alternative, and rivaroxaban should be avoided. Decreased IV methylprednisolone to 40 mg b.i.d., monitor blood sugars 11/25/2024: Patient is currently on room air maintaining saturations of 96% And Eliquis 10 mg p.o. b.i.d. 2. Active Deep Vein Thrombosis (DVT) History of DVT, on rivaroxaban 10 mg daily Outpatient treatment failure Newly diagnosed partially occlusive thrombus in left popliteal and superficial femoral veins confirmed on venous duplex History of prior DVT; previously on rivaroxaban, which was held on admission Currently on therapeutic IV heparin Plan to resume DOAC post-stabilization Monitor for bleeding risk and leg symptoms 11/24/2024: Initiated Eliquis 10 mg b.i.d. today 3. NSTEMI Type 2 MA vs ACS High clinical suspicion for ACS, but stress test was negative Hyperlipidemia Presented with chest tightness, SOB, elevated troponins, no ST elevation Echo: EF 5055%, RV enlargement, regional wall motion abnormalities Lexiscan (11/21): No reversible ischemia Cardiology (Dr. Vallejo) consulted; coronary angiography deferred by patient Continue atorvastatin 80 mg, metoprolol tartrate 25 mg daily, and telemetry monitoring Lisinopril held due to JEREMÍAS; however blood pressures have been soft since yesterday Morphine PRN for chest discomfort 4. 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 Hyperkalemia Resolved Multifactorial: JEREMÍAS + DM + lisinopril Treated with insulin/glucose Potassium normalized to 4.4 Continue to monitor BMP, lisinopril remains on hold 6. Type 2 Diabetes Mellitus Suboptimally Controlled Diabetic foot ulcer A1c: 7.7% On glargine 20 units HS, aspart TID Continue current insulin regimen Wound care consult- for diabetic foot ulcer 7. Hypertension Continue metoprolol tartrate 25 mg daily Lisinopril held due to renal impairment and prior hyperkalemia Amlodipine may be initiated based on ongoing BP needs Code Status: Full code DVT Prophylaxis: Eliquis Nutrition: Renal diet PT: Clear for discharge Prognosis: Guarded Disposition: Discharge tomorrow Arnold Johnson MD Internal Medicine Resident, PGY-2 Date of Service: Nov 25, 2024 Billing Provider: MEGHAN COFFEY MD, GAURAV, RES Nov 25, 2024 13:37
[2024-11-26 02:39] VITALS: BP 134/78; PULSE 77; RESP 14; TEMP 97.4; O2SAT 96
[2024-11-26 06:00] VITALS: O2SAT 94
[2024-11-26 06:22] LABS: CREATININE 1.96 MG/DL (0.60-1.10); TOTAL CARBON DIOXIDE 21.6 MMOL/L (24-32); eCRCL 38 ML/MIN; eGFR 34 ML/MIN
[2024-11-26 07:00] VITALS: BP 121/68; PULSE 72; RESP 16; TEMP 97.7; O2SAT 95
[2024-11-26 08:00] VITALS: RESP 16; O2SAT 95
[2024-11-26] MEDS ORDERED: ATOR20TA66 PO (08:25)
[2024-11-26] MEDS ORDERED: METO-395 PO (08:25)
--- NOTE | 2024-11-26 09:10 | PROGRESS NOTE- Residence ---
Progress Note - Resident Providers to CC Resident Creating Document: ROEL SCHERER RES ~ Central Line/PICC still needed: No Manjarrez-Non Protocol Manjarrez Indications Met/Not Met: F/C Indications Not Met Antibiotic Timeout Antibiotic Ordered?: No Subjective Patient has no acute complaints. No acute overnight events either. Breathing has improved, he is not short of breath anymore. Objective Vital Signs Date Time Temp Pulse Resp B/P (MAP) Pulse Ox O2 Delivery O2 Flow Rate FiO2 11/26/24 07:00 97.7 72 16 121/68 (85) 95 Room Air 11/25/24 20:00 0.0 21 Result Diagram: 11/24/24 0335 11/26/24 0534 General: Awake and Alert, no acute distress. HEENT: Conjunctiva pink, Sclera clear, Mucus Membranes moist. Resp: Unlabored. Lungs clear to auscultation bilaterally. Heart: Regular Rate and rhythm, normal S1 and S2 without murmur, rub or gallop. Abdomen: Soft and non tender no organomegaly Extremities: Left lower limb greater than right lower limb. 1+ pitting edema of the left lower limb. Chronic venous skin stasis changes on the left lower limb. Skin: Warm and Dry. Diffuse bruising of the upper extremities in the needle prick areas. Similar bruising on the fingertips from the blood glucose checks. Coagulation Studies Laboratory Tests Test 11/20/24 13:54 11/22/24 09:56 11/23/24 12:53 11/24/24 16:15 Prothrombin Time 10.9 SECONDS (9.0-12.0) INR International Normalized Ratio 1.1 INR D-Dimer 2.26 MG/L FEU (0-0.50) H D-Dimer Comment Activated Partial Thromboplast Time 37 SECONDS (22-32) H APTT (Heparin Protocol) 41 SECONDS (45-75) L Coagulation Comments Assessment Assessment 69-year-old male, presented with chest tightness, troponins were elevated suggestive of NSTEMI, Ruled out ACS with a stress test. In suspicion of PE, V/Q scan was done which showed a low probability, but due to high suspicion patient was transferred to ICU and received tPA with significantly improved his requirement for oxygen and received heparin per PE protocol. He is currently on Eliquis 10 mg p.o. b.i.d. His oxygen requirement improved and he is doing well on room air. Nephrology was consulted for acute kidney injury, it was found that the patient has been in negative fluid balance over the last two days and NPO for the procedures, this likely cause this JEREMÍAS which is now improving with IV fluid resuscitation as well as advocate p.o. intake. Plan Plan 1. JEREMÍAS on CKD stage 3: Improving CKD stage 3 secondary to diabetic nephropathy and unilateral kidney Mild JEREMÍAS secondary to vasomotor nephropathy Baseline renal function about 1.7 Creatinine 1.9 today; improved with IV fluid resuscitation and p.o. fluid intake Outpatient recommendation: Follow up with [place] [facility] to increase lisinopril dose for renal protection and supplemented with Lokelma to control the potassium 2. Acute hypoxemic respiratory failure: Resolved Suspect pulmonary embolism Wells score: 9; D-dimer elevated to 11.36 on admission Switch to Eliquis. Stop heparin Outpatient evaluation for hypercoagulable disorders No recent imaging studies since resection of the RCC; could consider abdominal CT 3. Type 2 diabetes mellitus: A1c 7.7 For age adjusted or A1c; he is pretty well-controlled Recommend blood sugar levels between 140-180 mg/dL Discussed in great detail with the patient regarding the elevation in blood glucose secondary to methylprednisone Continue sliding scale insulin 4. Moderate protein energy malnutrition: Nepro protein shakes Renal diet Lines: PIV Code status: Full code Disposition: Continue to follow up with the [facility] for Ne[facility] at discharge. Outpatient recommendations as mentioned above. oRel Scherer PGY3, Internal medicine resident Date of Service: Nov 26, 2024 Billing Provider: REX SAVAGE III, DEEPANJALI, RES Nov 26, 2024 09:10
[2024-11-26] MEDS ORDERED: APIX5TAB3 PO (09:30)
[2024-11-26 11:00] VITALS: BP 133/75; PULSE 79; RESP 19; TEMP 97.7; O2SAT 95
--- NOTE | 2024-11-26 17:04 | DISCHARGE SUMMARY-Residence ---
Discharge Summary Providers to CC Resident Creating Document: ARNOLD CASTORENA, RES ~ Discharge Summary Admission Diagnosis: Pulmonary embolism Hospital Course DATE OF ADMISSION: 11/20/2024 DATE OF DISCHARGE: 11/26/2024 Discharge Diagnosis\Comment: 1. Acute Hypoxic Respiratory Failure secondary to possible acute PE Pulmonary Embolism High clinical Suspicion Despite Negative V/Q Scan High Wells Score (9), markedly elevated initial D-dimer (11.36 mg/L) Outpatient Rivaroxaban Failure 2. Active Deep Vein Thrombosis (DVT) History of DVT, on rivaroxaban 10 mg daily Outpatient treatment failure 3. ACS ruled out High clinical suspicion for ACS, but stress test was negative Hyperlipidemia 4. 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 Hyperkalemia Resolved 6. Type 2 Diabetes Mellitus Suboptimally Controlled Diabetic foot ulcer A1c: 7.7% 7. Hypertension Operations\Procedures: None Consultants: Nephrology Cardiology [facility] team Complications: None Condition on DC: Stable New Medications: Apixaban (Eliquis) 5 Mg Tablet 10 MG PO BID for 5 Days, #20 TAB 0 Refills Take 10mg Eliquis BID PO for 5 days. Then continue taking 5mg Eliquis BID PO after Apixaban (Eliquis) 5 Mg Tablet 5 MG PO BID for 25 Days, #50 TAB 1 Refill Atorvastatin Calcium (Atorvastatin Calcium) 20 Mg Tablet 40 MG PO DAILY for 30 Days, #60 TAB Metoprolol Succinate (Metoprolol Succinate) 25 Mg Tab.sr.24h 25 MG PO DAILY for 30 Days, #30 TAB.SR Continued Medications: Cholecalciferol (Vitamin D3) (D3-2000) 50 Mcg Capsule 100 MCG PO DAILY Insulin Aspart (Insulin Aspart) 100 Unit/Ml Vial 10 UNIT SQ TID Pt gets 35 units-35 units-30units each day Insulin Glargine,Hum.rec.anlog (Insulin Glargine) 100 Unit/Ml Vial 34 UNIT SQ HS Semaglutide (Ozempic) 1 Mg/0.75 Ml (4 Mg/3 Ml) Pen.injctr 0.5 MG SUBCUT Q7D for 30 Days, #3 ML 0 Refills Vitamin B Complex (B Complex) 1 Each Tablet 1 TAB PO DAILY, TAB 0 Refills Discontinued Medications: Lisinopril (Lisinopril) 5 Mg Tablet 0.5 TAB PO DAILY, TAB Rivaroxaban (Xarelto) 10 Mg Tablet 1 TAB PO QPM, TAB 0 Refills take with meals Discharge Summary: HPI as per admitting physician: A 69-year-old male with a past medical history of diabetes, DVT on Xarelto, RCC status post nephrectomy presented to the ED after he started to feel shaky and short of breaths this afternoon after he went back home after checking the mailbox in his community. Patient states that he did not lose consciousness but had shaking in his aware of what was happening. Patient did not have involuntary bowel or bladder movement. Since he was feeling weak he slept for an hour and woke up continued to feel weak and therefore call the 911 while coming downstairs patient is started have chest tightness in the center of the chest with no radiation; difficulty breathing. Patient denies fever chills, palpitations, dizzy, headache. Patient does not have any difficulty in speech or weakness in his lower legs. Hospital course: Patient initially presented with chest tightness, shortness of breath, and elevated troponins concerning for NSTEMI. Although ACS was ruled out with a negative stress test, a high Wells score (9), significantly elevated D- dimer (initially 11.36 mg/L), and a new DVT in the left popliteal and superficial femoral veins led to strong clinical suspicion for acute pulmonary embolism. A V/Q scan was negative, but given his rapid decompensation requiring high-flow oxygen support (up to 40 L/min) and SpO2 drop to 87%, he was transferred to the ICU and treated empirically with IV heparin and thrombolytics. The patient responded well to thrombolysis with marked improvement in oxygenation and was transferred back to the step-down unit for further monitoring. His oxygen requirements steadily improved, transitioning from high-flow nasal cannula to 4 L nasal cannula, and as of 11/25/2024, he is now stable on room air with saturations of 96%. Therapeutic anticoagulation was continued with IV heparin initially, then transitioned to Eliquis 10 mg twice daily due to prior outpatient treatment failure on rivaroxaban and renal considerations. Given his background of CKD and nephrectomy, Eliquis was considered a safer long-term option. Repeat D-dimer trended down to 2.26 mg/L. The patient continues on Eliquis with monitoring for signs of bleeding or recurrent thrombosis. Regarding his NSTEMI, likely type 2 myocardial infarction due to demand ischemia, initial troponins were elevated without ST-segment changes. Echo revealed a preserved ejection fraction of 5055% with regional wall motion abnormalities and right ventricular enlargement. Cardiology was consulted, and coronary angiography was deferred by the patient. His current management includes atorvastatin 80 mg daily and metoprolol tartrate 25 mg daily. Lisinopril was held due to renal dysfunction and recent hyperkalemia. His renal function worsened during admission with creatinine rising from 1.74 to a peak of 2.52, likely due to acute tubular necrosis on top of chronic kidney disease. IV fluids (normal saline at 100 cc/hr) were initiated with gradual improvement in renal functioncreatinine trended down to 2.36. Urine output remained adequate, and nephrology was consulted. Lisinopril remains on hold, and nephrotoxic agents are being avoided. Hyperkalemia, attributed to JEREMÍAS, diabetes, and lisinopril, was managed with insulin and glucose, and potassium normalized to 4.4. His blood glucose has remained stable with a regimen of glargine 20 units at bedtime and aspart with meals. Hemoglobin A1c was 7.7%. A diabetic foot ulcer on the left foot is being managed with wound care consult and regular dressing changes.Hypertension was managed with metoprolol; initiation of amlodipine is under consideration based on future blood pressure trends. The patient remained hemodynamically stable throughout, and his respiratory status improved significantly. As of the most recent evaluation, he is awake, alert, oriented, comfortable at bedside, and without active complaints, now maintaining oxygen saturation at 96% on room air. Patient did not experience further complications throughout the entire hospital stay. Patient was seen and examined on the day of discharge. All labs, diagnostic workups, discharge plan discussed with patient in details during visit before discharge. All questions and concerns answered to the best of my professional knowledge. Physical examination today: Awake , alert, and oriented x4, in no distress HEENT: Atraumatic, normocephalic, EOMI, anicteric sclera ; pink conjunctiva Neck: Trachea midline. Supple, full range of motion, no JVD Cardiac: Regular rhythm, regular rate with no murmurs all over the precordium. Respiratory: Equal diminished breath sounds bilaterally, mild rales present, no tachypnea, no wheezing, Chest wall is symmetric and without deformity. Gastrointestinal: Abdomen symmetric, non-distended, soft, non-tender, normal bowel sounds x4 quadrant, normoactive, no hepatosplenomegaly Musculoskeletal: Left foot ulcer, dressing in place Neurological: No focal neurologic deficits, cranial nerve examination normal Skin: Warm and dry Laboratory Tests Test 11/24/24 17:28 11/24/24 21:05 11/25/24 05:16 11/25/24 07:30 Glucometer 269 mg/dl 268 mg/dl 202 mg/dl Sodium Level 138 MMOL/L Potassium Level 4.5 MMOL/L Chloride Level 108 MMOL/L Carbon Dioxide Level 22.7 MMOL/L Anion Gap 7 Blood Urea Nitrogen 87 MG/DL Creatinine 2.36 MG/DL Estimated GFR/1.73 m2 27 ML/MIN BUN/Creatinine Ratio 36.9 Glucose Level 186 MG/DL Calcium Level 7.9 MG/DL Total Bilirubin 0.4 MG/DL Aspartate Amino Transf (AST/SGOT) 17 U/L Alanine Aminotransferase (ALT/SGPT) 29 U/L Alkaline Phosphatase 82 IU/L Total Protein 5.8 G/DL Albumin 2.5 G/DL Globulin 3.3 G/DL Albumin/Globulin Ratio 0.8 Chemistry Comments Test 11/25/24 12:07 11/25/24 17:24 11/25/24 21:30 11/26/24 05:34 Glucometer 387 mg/dl 337 mg/dl 245 mg/dl Sodium Level 137 MMOL/L Potassium Level 4.8 MMOL/L Chloride Level 109 MMOL/L Carbon Dioxide Level 21.6 MMOL/L Anion Gap 6 Blood Urea Nitrogen 72 MG/DL Creatinine 1.96 MG/DL Estimated GFR/1.73 m2 34 ML/MIN BUN/Creatinine Ratio 36.7 Glucose Level 238 MG/DL Calcium Level 7.7 MG/DL Total Bilirubin 0.4 MG/DL Aspartate Amino Transf (AST/SGOT) 15 U/L Alanine Aminotransferase (ALT/SGPT) 30 U/L Alkaline Phosphatase 80 IU/L Total Protein 5.3 G/DL Albumin 2.3 G/DL Globulin 3.0 G/DL Albumin/Globulin Ratio 0.8 Chemistry Comments Advise on discharge: - Eliquis 10 mg p.o. b.i.d. for another 5 days (a total of 7 days, you received for 2 days here in the hospital); followed by Eliquis for 5 mg p.o. b.i.d. thereafter - follow up with PCP and kindly note that be switched you from rivaroxaban to Eliquis - [facility] in 1 week, follow up with a hemoglobin and monitor for any signs of overt bleeding - call 911/go to the nearby ED if any emergencies *Problems/Diagnosis: (1) Suspected pulmonary embolism Status: Acute Total Time Spent on D/C: Up to 30 Minutes Date of Service: Nov 26, 2024 Billing Provider: MEGHAN COFFEY MD, GAURAV, RES Nov 26, 2024 17:03
== END 2024-11-26 12:26 | disposition home or self-care (01) | DRG 280 ==
LOC: ER 17:54 → ED HOLD 22:03 → PCU 3S 11-20 07:12 → CICU 2S 11-23 10:12 → PCU 3S 11-23 15:10
PROVIDERS: ADMIT Internal Medicine; ATTEND Family Medicine
PROC: CB1YYZZ Planar Nuclear Medicine Imaging of Respiratory System using Other Radionuclide (ICD-10-PCS; 2024-11-20)
PROC: 4A02XM4 Measurement of Cardiac Total Activity, External Approach (ICD-10-PCS; principal; 2024-11-21)
PROC: 3E033HZ Introduction of Radioactive Substance into Peripheral Vein, Percutaneous Approach (ICD-10-PCS; 2024-11-21)
PROC: 5A0935A Assistance with Respiratory Ventilation, Less than 24 Consecutive Hours, High Flow/Velocity Cannula (ICD-10-PCS; 2024-11-22)
PROC: 5A09357 Assistance with Respiratory Ventilation, Less than 24 Consecutive Hours, Continuous Positive Airway Pressure (ICD-10-PCS; 2024-11-22)
PROC: 5A0935A Assistance with Respiratory Ventilation, Less than 24 Consecutive Hours, High Flow/Velocity Cannula (ICD-10-PCS; 2024-11-23)
PROC: 5A09357 Assistance with Respiratory Ventilation, Less than 24 Consecutive Hours, Continuous Positive Airway Pressure (ICD-10-PCS; 2024-11-23)
PROC: 5A0935A Assistance with Respiratory Ventilation, Less than 24 Consecutive Hours, High Flow/Velocity Cannula (ICD-10-PCS; 2024-11-24)
DX: I82.432 Acute embolism and thrombosis of left popliteal vein (principal); J96.01 Acute respiratory failure with hypoxia; I21.A1 Myocardial infarction type 2; N17.0 Acute kidney failure with tubular necrosis; E44.0 Moderate protein-calorie malnutrition; I82.412 Acute embolism and thrombosis of left femoral vein; E87.5 Hyperkalemia; E78.00 Pure hypercholesterolemia, unspecified; E11.22 Type 2 diabetes mellitus with diabetic chronic kidney disease; E11.40 Type 2 diabetes mellitus with diabetic neuropathy, unspecified; N18.30 Chronic kidney disease, stage 3 unspecified; Z88.8 Allergy status to other drugs, medicaments and biological substances; Z91.018 Allergy to other foods; Z79.4 Long term (current) use of insulin; Z79.899 Other long term (current) drug therapy; Z90.5 Acquired absence of kidney; Z68.29 Body mass index [BMI] 29.0-29.9, adult
CPT/HCPCS: 36415; 36600; 70450; 71045; 76770; 78452; 78582; 80048; 80053; 80061; 81001; 82607; 82803; 82948; 83036; 83605; 83735; 83880; 84132; 84145; 84484; 85018; 85025; 85379; 85610; 85730; 87040; 87081; 93005; 93017; 93306; 93970; 94640; 94660; 94760; 96365; 96372; 96375; 97116; 97161; 97530; 99291; 99292; A4615; A4649; A6212; A6213; A6449; A9500; A9539; A9540; G0378; J1644; J1815; J1938; J2785; J2919; J3101; J7030